=== PATIENT | male | born 1945 | race Caucasian/White ===

== ENCOUNTER 2023-05-27 10:27 | Outpatient (OUT) | payer MEDICARE, OTHER, SELFPAY ==
[2023-05-27 11:11] LABS: Estimated Average Glucose 111 mg/dL; Glycohemoglobin A1C 5.5 % (4.5-6.2)
[2023-05-27 11:28] LABS: Alanine Aminotransferase 31 U/L (16-63); Albumin Globulin Ratio 1.3; Alkaline Phosphatase 62 U/L (46-116); Anion Gap 12.1; Aspartate Amino Transferase 20 U/L (15-37); BUN Creatinine Ratio 18.2; Bilirubin Direct 0.2 mg/dL (0.0-0.2); Bilirubin Total 0.7 mg/dL (0.2-1.0); Calcium 8.7 mg/dL (8.5-10.1); Carbon Dioxide 29.8 mmol/L (21.0-32.0); Chloride 106 mmol/L (98-107); Chol HDL Ratio 2.1; Cholesterol 135 mg/dL (<=200); Estimated GFR (African America >60 (>=60); Estimated GFR (Non-African Ame >60 (>=60); Globulin 3.1 g/dL; Glucose 133 mg/dL (74-106); HDL Cholesterol 65 mg/dL (40-60); Potassium 3.9 mmol/L (3.5-5.1); Sodium 144 mmol/L (136-145); Thyroid Stimulating Hormone 1.714 uIU/mL (0.358-3.740); Total Protein 7.1 g/dL (6.4-8.2); Triglycerides 97 mg/dL (<=150); VLDL CHOLESTEROL 19.4 mg/dL
[2023-05-27 11:56] LABS: Basophils Percent Auto 0.8 % (0.2-2.0); Eosinophils Absolute Auto 0.1 10^3/uL (0.0-0.7); Eosinophils Percent Auto 3.5 % (0.9-7.0); Hematocrit 41.4 % (42.0-54.0); Hemoglobin 14.5 g/dL (14.0-18.0); Immature Granulocytes Abs Auto 0.02 10^3/uL (0.00-0.03); Immature Granulocytes Pct Auto 0.5 % (0.0-0.5); Lymphocytes Percent Auto 24.8 % (20.5-60.0); Mean Corpuscular Hemoglobin 32.2 pg (25.9-34.0); Mean Corpuscular Volume 91.8 fL (80.0-94.0); Mean Platelet Volume 9.7 fL (9.5-13.5); Monocytes Absolute Auto 0.3 10^3/uL (0.3-0.8); Monocytes Percent Auto 7.8 % (1.7-12.0); Neutrophils Absolute Auto 2.5 10^3/uL (1.4-6.5); Neutrophils Percent Auto 62.6 % (43.0-75.0); Platelet Count 123 10^3/uL (150-450); Red Blood Count 4.51 10^6/uL (4.70-6.10); Red Cell Distribution Width 12.5 % (11.0-15.0)
== END 2023-05-27 10:28 | disposition home or self-care (01) ==
PROVIDERS: PCP Family Medicine; Visit Provider Family Medicine
DX: I10 Essential (primary) hypertension (principal); Z79.899 Other long term (current) drug therapy; R73.03 Prediabetes; E78.5 Hyperlipidemia, unspecified; E66.9 Obesity, unspecified
CPT/HCPCS: 36415; 80048; 80061; 80076; 83036; 84443; 85025

== ENCOUNTER 2024-05-25 09:34 | Outpatient (OUT) | payer MEDICARE, OTHER, SELFPAY ==
[2024-05-25 10:21] LABS: Basophils Percent Auto 0.9 % (0.2-2.0); Eosinophils Absolute Auto 0.2 10^3/uL (0.0-0.7); Eosinophils Percent Auto 5.1 % (0.9-7.0); Hematocrit 41.7 % (42.0-54.0); Immature Granulocytes Abs Auto 0.02 10^3/uL (0.00-0.03); Immature Granulocytes Pct Auto 0.5 % (0.0-0.5); Lymphocytes Absolute Auto 0.9 10^3/uL (1.2-3.8); Lymphocytes Percent Auto 21.6 % (20.5-60.0); Mean Corpuscular HGB Conc 33.6 g/dL (29.9-35.2); Mean Corpuscular Hemoglobin 31.9 pg (25.9-34.0); Monocytes Absolute Auto 0.4 10^3/uL (0.3-0.8); Monocytes Percent Auto 9.4 % (1.7-12.0); Neutrophils Absolute Auto 2.7 10^3/uL (1.4-6.5); Neutrophils Percent Auto 62.5 % (43.0-75.0); Platelet Count 132 10^3/uL (150-450); Red Blood Count 4.39 10^6/uL (4.70-6.10); Red Cell Distribution Width 12.4 % (11.0-15.0); White Blood Count 4.4 10^3/uL (4.0-11.0)
[2024-05-25 11:16] LABS: Estimated Average Glucose 105 mg/dL; Glycohemoglobin A1C 5.3 % (4.5-6.2)
[2024-05-25 11:58] LABS: Alanine Aminotransferase 35 U/L (16-63); Albumin Globulin Ratio 1.2; Albumin Level 3.8 g/dL (3.4-5.0); Alkaline Phosphatase 80 U/L (46-116); Anion Gap 11.6; Aspartate Amino Transferase 32 U/L (15-37); BUN Creatinine Ratio 16.7; Bilirubin Direct 0.2 mg/dL (0.0-0.2); Bilirubin Total 0.7 mg/dL (0.2-1.0); Calcium 8.9 mg/dL (8.5-10.1); Carbon Dioxide 28.5 mmol/L (21.0-32.0); Chloride 106 mmol/L (98-107); Cholesterol 131 mg/dL (<=200); Estimated GFR (African America >60 (>=60); Estimated GFR (Non-African Ame >60 (>=60); Globulin 3.1 g/dL; Glucose 91 mg/dL (74-106); HDL Cholesterol 66 mg/dL (40-60); Potassium 4.1 mmol/L (3.5-5.1); Sodium 142 mmol/L (136-145); Thyroid Stimulating Hormone 1.872 uIU/mL (0.358-3.740); Total Protein 6.9 g/dL (6.4-8.2); Triglycerides 73 mg/dL (<=150); VLDL CHOLESTEROL 14.6 mg/dL
== END 2024-05-25 09:35 | disposition home or self-care (01) ==
LOC: LAB 09:36
PROVIDERS: PCP Family Medicine; Visit Provider Family Medicine
DX: R73.03 Prediabetes (principal); I10 Essential (primary) hypertension; Z79.899 Other long term (current) drug therapy; E78.5 Hyperlipidemia, unspecified; E66.9 Obesity, unspecified
CPT/HCPCS: 36415; 80048; 80061; 80076; 83036; 84443; 85025

== ENCOUNTER 2024-10-19 09:03 | Outpatient (OUT) | payer MEDICARE, OTHER, SELFPAY ==
--- NOTE | 2024-10-19 09:00 | CA_ITS ---
Patient Name: ILIANA FLORES MR#: [id number] : 1945 Exam Date: 10/19/2024 Ordering Doctor: DR MILLER GARCIA M.D. ECHOCARDIOGRAM REPORT PROCEDURE: CA ECHO DOPPLER COMPLETE INDICATIONS: Aortic valve stenosis, hypertension COMPARISON: None. DESCRIPTION: COMPLETE ECHOCARDIOGRAM Real-time transthoracic echocardiography with 2D, M-mode, spectral and color flow Doppler performed. QUALITY: Technical quality was good. LEFT VENTRICLE: Normal chamber size. Mild concentric left ventricular hypertrophy. LV EF: Normal left ventricular ejection fraction 65%, no regional wall motion abnormalities DIASTOLIC: Grade I diastolic dysfunction. ATRIAL SEPTUM: Visually appears intact. LEFT ATRIUM: Moderate dilatation. RIGHT ATRIUM: Moderate dilatation. RIGHT VENTRICLE: Normal chamber size. Normal right ventricular systolic function. TRICUSPID VALVE: Normal mobility and thickness. No stenosis with trivial regurgitation. Could not evaluate pulmonary arterial pressure due to lack of adequate tricuspid regurgitation signal MITRAL VALVE: Normal mobility and thickness. No evidence of mitral valve stenosis. There is no mitral annular calcification. No mitral regurgitation. AORTIC VALVE: Normal trileaflet appearance. Mildly calcified aortic valve. Mildly diminished mobility. Doppler velocity suggest mild aortic valve stenosis. DVI 0.4, ISSAC 1.7 cm2, mean pressure gradient 11.5 mmHg. Trivial aortic regurgitation. AORTIC ROOT: Normal diameter and appearance. Aortic arch is normal in size. PULMONIC VALVE: Normal thickness and mobility. No stenosis. No regurgitation. PERICARDIUM: No evidence of pericardial effusion. IVC: Normal size and Collapes with inspirations. PLEURA: CONCLUSION: Mild concentric left ventricular hypertrophy Normal left ventricle systolic function without wall motion abnormalities, ejection fraction 65% Grade 1 diastolic dysfunction Normal right ventricular size and systolic function Mild aortic stenosis Trivial aortic insufficiency Adult Echocardiography Procedure Report Left Ventricle LVEDD (3.7 - 5.6 cm): 4.91 cm LVESD (2.2 - 4.0 cm): 2.81 cm LVIVS thickness (0.6 - 1.2 cm): 1.19 cm LVPW thickness (0.5 - 1.0 cm): 1.13 cm e': 0.08 m/s E - e': 8.02 LVOT Max Gradient: 4.06 mm[Hg] LVOT Area (cm2): 1.01 m/s Peak Velocity (LVOT): 1.01 m/s Mean Velocity (LVOT): 0.77 m/s LVOT Diameter 2.23 cm Left Ventricular Ejection Fraction: Left Atrium LA Volume Index (2D A2C): 42.45 ml/m2 Left Atrium Systolic Dimension: 3.83 cm Mitral Valve MV E to A Ratio: 0.66 MV Max Gradient: MV Mean Gradient: Mitral Valve A-Wave Peak Velocity: 0.94 m/s Mitral Valve E-Wave Peak Velocity: 0.62 m/s Cardiovascular Orifice Area: Right Ventricle RV Internal Diastolic Dimension: Aorta AO Root Diam: 3.39 cm Ascending Ao Diam: Aortic Valve AoV Area (Peak Denys): 1.66 cm2, 2.74 cm2 AoV Area (VTI): 1.69 cm2, 3.01 cm2 Deceleration [place]: Pressure Half-Time: Peak Velocity(Antegrade Flow): 1.43 m/s, 2.10 m/s, 2.37 m/s Peak Gradient(Antegrade Flow): 8.19 mm[Hg], 17.59 mm[Hg], 22.45 mm[Hg] Mean Velocity(Antegrade Flow): 0.91 m/s, 1.37 m/s, 1.52 m/s Mean Gradient(Antegrade Flow): 4.05 mm[Hg], 9.26 mm[Hg], 11.45 mm[Hg] Velocity Time Integral: 29.25 cm, 44.83 cm, 52.21 cm Tricuspid Valve Peak Velocity (Regurgitant Flow): Peak Velocity: Pulmonic Valve Mean Gradient: 5.70 mm[Hg] Mean Velocity: 1.11 m/s Peak Velocity: 1.77 m/s, 1.73 m/s Peak Gradient: 11.95 mm[Hg], 12.55 mm[Hg] Right Atrium Right Atrium Systolic Pressure: 58.84 ml, 58.84 ml Dictated by: Thao Villa MD on 10/22/2024 at 18:33 Approved by: Thao Villa MD on 10/22/2024 at 18:42
== END 2024-10-19 09:04 | disposition home or self-care (01) ==
LOC: CARD 09:04
PROVIDERS: PCP Family Medicine; Visit Provider Internal Medicine Interventional Cardiology
DX: I35.9 Nonrheumatic aortic valve disorder, unspecified (principal); R68.89 Other general symptoms and signs
CPT/HCPCS: 93306

== ENCOUNTER 2025-10-04 09:44 | Outpatient (OUT) | payer MEDICARE, OTHER, SELFPAY ==
--- OUTSIDE RECORDS SUMMARY | 2025-09-26 10:45 | XMS_ITS | Encounter Summary ---
Author Organization [facility] Address [address] [place] [address] Care Team Providers Care Sheet Tester Name Role Phone Caleb Villeda MD Primary Care Provider [phone] Reason for Referral * Imaging (Routine) - Pending ReviewSpecialtyDiagnoses / ProceduresReferred By ContactReferred To ContactCardiology Diagnoses SANDOVAL (dyspnea on exertion) Coronary artery disease, unspecified vessel or lesion type, unspecified whether angina present, unspecified whether [place] or transplanted heart Procedures Transthoracic echo (TTE) complete Mulu Powers MD [address] [place] [address] Phone: tel: fax: Referral IDStatusReasonStart DateExpiration DateVisits RequestedVisits [id number] Review Perform Procedure Encounter Details DateTypeDepartmentCare Team (Latest Contact Info)Itaevpztlra30/11/2025 10:45 AM ESTOffice Visit [facility] [address] [address] Mulu Powers MD [address] [place] [address] SANDOVAL (dyspnea on exertion) (Primary Dx); Coronary artery disease, unspecified vessel or lesion type, unspecified whether angina present, unspecified whether [place] or transplanted heart Social History Tobacco UseTypesPacks/DayYears UsedDateSmoking Tobacco: FormerCigarettesAlcohol UseStandard Drinks/WeekCommentsYes0 (1 standard drink = 0.6 oz pure alcohol) moderateUT Safety & EnvironmentAnswerDate RecordedFear of Current or Ex-Partner Not on file12/08/2023Emotionally AbusedNot on file12/08/2023hysically AbusedNot on file12/08/2023Sexually AbusedNot on file12/08/2023hysically or Sexually AbusedNot on file12/08/2023Sex and Gender InformationValueDate RecordedSex Assigned at TzdvaKeig39/11/2025 10:45 AM ESTLegal GvsFuul3804/15/2022 12:39 AM EDT Gender IdentityChoose not to neikfiwh22/11/2025 10:45 AM ESTSexual Orientation Choose not to cwlkkbwi59/11/2025 10:45 AM ESTdocumented as of this encounter Last Filed Vital Signs Vital SignReadingTime TakenCommentsBlood Mhtxfjpq010/7009/26/2025 11:00 AM EST Usbls733209/26/2025 11:00 AM ESTTemperature--Respiratory Rate--Oxygen Saturation 98%09/26/2025 11:00 AM ESTInhaled Oxygen Concentration--Jeivlt085 kg (224 lb) 09/26/2025 11:00 AM NPHJqewgu624.3 cm (5' 9 )09/26/2025 11:00 AM ESTBody Mass Index33.0809/26/2025 11:00 AM ESTdocumented in this encounter Progress Notes * Mulu Powers MD - 09/26/2025 10:45 AM EST Images from the original note were not included. Cardiology Clinic Note Subjective Prateek Llanes is a 79 y.o. year old male patient being seen for 1 year follow up CAD, hypertension, hyperlipidemia, and aortic valve stenosis. Had his echo in Oct 2024 after last apt. No recent lab results. Denies chest pain. C/o worsening SOB with ambulation. Patient Active Problem List Diagnosis Benign prostatic hyperplasia with lower urinary tract symptoms Cardiovascular stress test abnormal Erectile dysfunction due to diseases classified elsewhere Urge incontinence Urologic disorders Essential hypertension Ex-smoker Gout Hyperlipidemia Microscopic hematuria Obesity Positive PPD Arthritis, gouty CAD, multiple vessel Chronic left-sided low back pain without sciatica Dermatitis Dyslipidemia Encounter for long-term current use of medication Medicare annual wellness visit, subsequent Prediabetes Neck pain Family History Problem Relation Name Age of Onset Heart attack Father Heart failure Father Heart murmur Sister Social History Tobacco Use Smoking status: Former Types: Cigarettes Substance Use Topics Alcohol use: Yes Comment: moderate Update: 08/30/2022 Doing okay overall; no chest pain. Shortness of breath is stable. He has numbness of the left hand particularly when he sleeps with his arm above his head. He stateshe noticed this initially after his cardiac catheterization which was via a radial approach. This is improved with time. He denies weakness, he denies color changes, he denies discoloration or skin lesions of the left upper extremity. He is left-handed. Update: 07/25/2023 No longer experiencing numbness in his left arm Does not monitor blood pressure at home Doing well without concerns from a cardiac standpoint Reports stable dyspnea on exertion, no chest pains, significant lower extremity edema, or palpitations Update 10/03/2024: Doing well; no new cardiovascular symptoms UPDATE 09/26/2025 He feels that he is more short of breath with exertion; this has been going on for the past year. No chest pain No orthopnea, no paroxysmal external dyspnea, no significant lower extremity edema Review of Systems Cardiovascular: Positive for dyspnea on exertion (worsening) and leg swelling (minimal, resolves bymorning). Respiratory: Positive for cough. All other systems reviewed and are negative. Objective Visit Vitals Smoking Status Former Physical Exam BP 128/70 (BP Location: Left arm, Patient Position: Sitting) Pulse 65 Ht 1.753 m (5' 9 ) Wt 102 kg (224 lb) SpO2 98% BMI 33.08 kg/m?? Constitutional: General Appearance: well-developed, appears stated age, and no apparent distress. Psychiatric: Mental Status: normal affect. Orientation: oriented to time, place, and person. Eyes: Lids and Conjunctivae: non-injected. ENMT: Nose: no lesions on external nose. Neck: Carotid Arteries: bilateral normal upstroke. Jugular Veins: normal jugular venous pressure. Lungs: Chest Exam: normal curvature. Auscultation: no wheezing, rales, or rhonchi. Cardiovascular: Heart Sounds: normal S1 and s2. Regular rate and rhythm. Systolic Murmur: not heard. Diastolic Murmur: not heard. Extremities: No edema, no tenderness. Peripheral Pulses: Pulses: full and equal in all extremities except if noted. Abdomen: Inspection and Palpation: non distended. Neurologic: Gait: normal gait. Skin: Inspection and Palpation: warm and dry. Nails: no clubbing. Allergies No Known Allergies Medications Current Outpatient Medications: allopurinol (Zyloprim) 100 mg tablet, allopurinol 100 mg tablet TAKE 1 TABLET BY MOUTH EVERY DAY, Disp: , Rfl: amLODIPine (Norvasc) 5 mg tablet, Take 1 tablet (5 mg) by mouth in the morning., Disp: 90 tablet, Rfl: 3 aspirin 81 mg EC tablet, 1 (one) time each day at the same time., Disp: , Rfl: atorvastatin (Lipitor) 40 mg tablet, Take 1 tablet (40 mg) by mouth at bedtime., Disp: 90 tablet, Rfl: 3 carvedilol (Coreg) 6.25 mg tablet, Take 1 tablet (6.25 mg) by mouth with breakfast and with eveningmeal., Disp: 180 tablet, Rfl: 3 losartan (Cozaar) 25 mg tablet, Take 1 tablet (25 mg) by mouth in the morning., Disp: 90 tablet, Rfl: 3 tamsulosin (Flomax) 0.4 mg 24 hr capsule, Take 1 tablet by mouth in the morning., Disp: , Rfl: Recent Labs 05/27/2023 WBC 4, hemoglobin 14.5, hematocrit 41.4, platelets 123 Sodium 144, potassium 3.9, chloride 108, CO2 29.8, BUN 16, serum creatinine 0.88, estimated GFR greater than 60% Hemoglobin A1c 5.5% Total cholesterol 135, triglycerides 97, HDL 65, LDL 51 TSH 1.714 (0.358-3.740) Imaging and other tests Cardiovascular Laboratory Report FINAL IMPRESSIONS: 1. Severe stenosis of the high originating first obtuse marginal branch of the left circumflex. 2. Moderate calcific disease of the left anterior descending coronary artery. 3. Mild plaque of the right coronary artery. RECOMMENDATIONS: 1. Given the proximity of the stenosis to the distal left main/ostial left circumflex and ostial left anterior descending, and the paucity of symptoms, recommended a conservative approach with continued optimal medical therapy. 2. Aggressive cardiovascular risk factor modification. 3. Optimization of medical management; continue aspirin, switch simvastatin to 40 mg of atorvastatin, increase his Coreg and add Norvasc 5 mg daily. Ideally, nitrates would have been added, however, the patient is on Sildenafil. 4. Close clinical monitoring for development of new or worsening symptomatology. 5. Should the patient continue to experience symptoms despite optimal medical therapy, he will return for elective revascularization of the obtuse marginal from a femoral approach given difficulties encountered via the left radial. 6. Follow up with Dr. Powers in the next 2-3 weeks. 7. Follow up with Dr. Villeda as scheduled. PROCEDURES: Bilateral selective coronary angiography via a left radial approach. Echo 07/01/21 Normal LVSF EF 55-60% No wall motion abnormalities Mild elevated rt sided pressures Mild AO stenosis Cardiac CTA from 06/26/2021 Impression showed mild calcified plaques in the proximal RCA with less than 50% stenosis of moderate calcified and noncalcified plaques in the proximal LAD with moderate stenosis of 50 to 70%. Small caliber of the left circumflex and OM branches. Normal global regional wall motion and function of the LV. Normal ejection fraction 69%. Mild thoracic spondylosis. Mild vascular calcification in the descending thoracic aorta. Calcium scoring of 802 suggesting moderate likelihood of significant coronary artery disease and single-vessel which is more likely involving the LAD Stress test from 05/14/2021 Normal myocardial perfusion - At onset of recovery there appears to be a [address] segment depression in lead I as well as downsloping with inverted T wave in lead aVL. There is also J-point depression in the inferior lateral leadsat work-up with upsloping. Therefore the impression was this is an abnormal exercise stress test based on ST segment downsloping and depression in the anterior leads. The patient voiced no reproducible symptoms of chest pain or shortness of breath. Left upper extremity Doppler 03/03/2022 Abnormal reversal of flow throughout the left upper extremity during diastole No significant vessel narrowing or plaque Labs 05/25/2024: BUN 14, creatinine 0.84 AST and ALT are normal Total cholesterol 131, triglycerides 73, HDL 66, LDL 51 Echocardiogram 10/23/2024: Global left ventricular systolic function is normal without wall motion abnormality; EF 65% Mild left ventricular hypertrophy Grade 1 diastolic dysfunction Normal right ventricular size and systolic function Mild aortic valve stenosis Trivial aortic insufficiency Assessment Plan 1. Coronary artery disease -Severe stenosis of the high originating first obtuse marginal branch of the left circumflex with recommendations for medical management. Stable without anginal symptoms. He is maintained on aspirin 81 mg, atorvastatin 40 mg, losartan 25 mg, and carvedilol 6.25 mg twice daily. 2. Hypertension -Well-controlled, continue current medication regimen. Obtain labs today. 3. Aortic valve stenosis -Mild stenosis on echocardiogram, will plan for echo in about 2 years for surveillance or sooner asclinically indicated. 4. Hyperlipidemia -Well-controlled on atorvastatin 40 mg with LDL of 51. 5. Left arm numbness -Prior concern for left subclavian stenosis versus thoracic outlet syndrome. Symptoms have completely resolved. No further work-up is indicated. Recommendations: Continue guideline directed medical therapy for coronary artery disease including aspirin, moderateintensity statin therapy, and an angiotensin receptor ne Will repeat an echocardiogram for serial monitoring of his valvular heart disease, Particularly given his dyspnea on exertion We will order a Lexiscan stress test to evaluate for ischemia given his known coronary artery disease and current worsening exertional dyspnea Will consider cardiac catheterization including a right heart catheterization and coronary angiography if significant ischemia is found Return to clinic in 6 months or sooner should problems arise Mulu Powers MD, MPH, [facility], [facility], [facility] Interventional Cardiology Pager Email: [email or web address] documented in this encounter Plan of Treatment NameTypePriorityAssociated DiagnosesOrder ScheduleTransthoracic echo (TTE) completeEchocardiographyRoutine SANDOVAL (dyspnea on exertion) Coronary artery disease, unspecified vessel or lesion type, unspecified whether angina present, unspecified whether [place] or transplanted heart Expected: 09/26/2025 (Approximate), Expires: 09/26/2027Lexiscan Stress Myocardial Perfusion ImagingCardiac ServicesRoutine SANDOVAL (dyspnea on exertion) Coronary artery disease, unspecified vessel or lesion type, unspecified whether angina present, unspecified whether [place] or transplanted heart Expected: 09/26/2025 (Approximate), Expires: 09/26/2027documented as of this encounter Visit Diagnoses Diagnosis SANDOVAL (dyspnea on exertion)- Primary Other dyspnea and respiratory abnormality Coronary artery disease, unspecified vessel or lesion type, unspecified whether angina present, unspecified whether [place] or transplanted heart documented in this encounter Care Teams Team MemberRelationshipSpecialtyStart DateEnd Date Caleb Villeda MD [address] [place] [address] PCP - Rpwhrxr11/10/22documented as of this encounter
--- OUTSIDE RECORDS SUMMARY | 2025-10-04 09:48 | XMS_ITS | Clinical Summary ---
Author Organization [facility] Address [address] [place] [address] Care Team Providers Care Home Demonstrator Name Role Phone Caleb Villeda MD Primary Care Provider [phone] Allergies No known active allergies Medications MedicationSigDispense QuantityRefillsLast FilledStart DateEnd DateStatus allopurinol (Zyloprim) 100 mg tablet allopurinol 100 mg tablet TAKE 1 TABLET BY MOUTH EVERY DAYActive aspirin 81 mg EC tablet 1 (one) time each day at the same time.Active tamsulosin (Flomax) 0.4 mg 24 hr capsule Take 1 tablet by mouth in the morning.Active carvedilol (Coreg) 6.25 mg tablet Indications:Benign hypertensive heart disease without congestive heart failure Take 1 tablet (6.25 mg) by mouth with breakfast and with evening meal. 180 tablet 4Active losartan (Cozaar) 25 mg tablet Indications:Benign hypertensive heart disease without congestive heart failure Take 1 tablet (25 mg) by mouth in the morning. 90 tablet 501/6Active amLODIPine (Norvasc) 5 mg tablet Indications:Benign hypertensive heart disease without congestive heart failure Take 1 tablet (5 mg) by mouth in the morning. 90 tablet //6Active atorvastatin (Lipitor) 40 mg tablet Indications:Coronary artery disease, unspecified vessel or lesion type, unspecified whether angina present, unspecified whether sam[place] or transplanted heartTake 1 tablet (40 mg) by mouth at bedtime. 90 tablet 311/5Active cyclobenzap-irritant cntr irr2 10 mg kit Take 10 mg by mouth if needed in the morning, at noon, and at bedtime.06/03/2025 Active atorvastatin (Lipitor) 40 mg tablet Indications:Coronary artery disease, unspecified vessel or lesion type, unspecified whether angina present, unspecified whether sam[place] or transplanted heartTAKE 1 TABLET BY MOUTH AT BEDTIME 90 tablet Discontinued(Reorder) Active Problems ProblemNoted DateDiagnosed DateNeck pain06/03/2025Medicare annual wellness visit, tvlxknkytc91/05/7717Zfxtgpbvwe31/14/2024rthritis, gouty11/30/2023AD, multiple acbnja5111/30/2023hronic left-sided low back pain without sciatica 11/30/20235188Sgnltymtvqch67/14/2024Encounter for long-term current use of umbuuogtqr04/14/7866Iulswnvxwwl04/14/2024Essential mictbostdafc46/09/2023 07/25/2023Ex-musprn58outHyperlipidemia Microscopic efudmumyr94Obesity07/25/2023 07/25/2023ositive PPDErectile dysfunction due to diseases classified wormtewhw36/09/2022enign prostatic hyperplasia with lower urinary tract czaklhwz32/17/2022Urge eynbvvgeonzs92/17/2022Urologic mtolvcqxc62/17/2022 Overview (08/30/2022): 1. benign prostatic hyperplasia with obstruction cystoscopy 04/23/2022 with progressively worseningurinary ludvupmac-96-11 times, nocturia times 2-3, and decreased urinary stream with rare urge incontinence complicated by 2 beers and 1 cup of coffee daily and progression despite Flomax 0.4 mg nightly with primary care; [place] 2. ED with documented coronary disease responding to Viagra 100 mg with primary care 3. Concern for microscopic hematuria urine dip 03/02/2022 ruled out by microscopic urinalysis 4. Bilateral simple renal cysts ultrasound 03/22/2022 5. Complex urodynamics 03/19/2022 peak and mean flows 43.9 and 10.6 PVR 50 mL, decreased bladder capacity 143 mL with uninhibited contractions, very elevated voiding pressures, and peak and mean flows on voiding pressure study 9.9 and 3.3 with PVR 0 6. Patient requested prostate cancer screening 06/25/2022. Cardiovascular stress test /18/2021 Encounters DateTypeDepartmentCare KwemFsmjvcfinbn26/11/2025 10:45 AM ESTOffice Visit [facility] [address] [place] [facility] [place] [address] Mulu Powers MD DOE (dyspnea on exertion) (Primary Dx); Coronary artery disease, unspecified vessel or lesion type, unspecified whether angina present, unspecified whether sam[place] or transplanted heart09/05/2025Refill [facility] [address] [place] [facility] [place] [address] Chely Aldana MA Coronary artery disease, unspecified vessel or lesion type, unspecified whether angina present, unspecified whether sam[place] or transplanted heart08/12/2025Orders Only [facility] [address] [place] [facility] [place] [address] Chely Aldana MA 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 Last 3 Months Family History Medical HistoryRelationNameCommentsHeart attackFatherHeart failureFatherHeart murmurSisterRelationNameStatusCommentsFatherSister Social History Tobacco UseTypesPacks/DayYears UsedDateSmoking Tobacco: FormerCigarettes Tobacco Cessation:Counseling Given: Not Answered Alcohol UseStandard Drinks/WeekCommentsYes0 (1 standard drink = 0.6 oz pure alcohol)moderateUT Safety & EnvironmentAnswerDate RecordedFear of Current or Ex-PartnerNot on file12/08/2023Emotionally AbusedNot on file12/08/2023hysically AbusedNot on file12/08/2023Sexually AbusedNot on file12/08/2023hysically or Sexually AbusedNot on file12/08/2023Sex and Gender InformationValueDate Recorded Sex Assigned at PohndKvfz22/11/2025 10:45 AM ESTLegal IvkPbvf6604/15/2022 12:39 AM EDTGender IdentityChoose not to mjetokin47/11/2025 10:45 AM ESTSexual OrientationChoose not to fdrbwlus77/11/2025 10:45 AM EST Last Filed Vital Signs Vital SignReadingTime TakenCommentsBlood Eumuzmgj193/7009/26/2025 11:00 AM EST Gmaqq832009/26/2025 11:00 AM ESTTemperature--Respiratory Rate--Oxygen Saturation 98%09/26/2025 11:00 AM ESTInhaled Oxygen Concentration--Zxmibv579 kg (224 lb) 09/26/2025 11:00 AM BBXCqfqvf557.3 cm (5' 9 )09/26/2025 11:00 AM ESTBody Mass Index33.0809/26/2025 11:00 AM EST Plan of Treatment Health MaintenanceDue DateLast DoneCommentsDiabetes: Hemoglobin A1C1945 Medicare Annual Wellness (AWV)1945Depression Acywgawds27/05/1959Fall Risk Mudicczyk53/05/2012COVID-19 Vaccine ( season)5006/25/2025, 01/25/2025, 06/25/2024, Additional history existsAdult Qipkxjo0502/22/2029 02/22/2019, 03/07/2012Pneumococcal Vaccine: 50+ PvqtjLnpyixljw59/19/2018, 10/24/2015Zoster RexzmdyyBidsgoguh38/09/2019, 02/22/2019, 05/21/2013Influenza ZdsrsmzAtjlglnbp96/09/2025, 06/25/2024, 06/01/2023, Additional history existsHIB VaccinesAged OutNo longer eligible based on patient's age to complete this topic HPV VaccinesAged OutNo longer eligible based on patient's age to complete this topicIPV VaccinesAged OutNo longer eligible based on patient's age to complete this topicMeningococcal B VaccineAged OutNo longer eligible based on patient's age to complete this topicMeningococcal VaccineAged OutNo longer eligible based on patient's age to complete this topicRotavirus VaccinesAged OutNo longer eligible based on patient's age to complete this topic Insurance * Guarantor: Prateek Llanes TypeRelation to PatientDate of BirthPhone Billing AddressPersonal/PlfpcjDecr02/05/1946 [address] [address] MemberSubscriberPlan / Payer (Effective 2011-Present)Name:Prateek Llanes Member ID:[id number] Relation to Subscriber:SelfName:Prateek Llanes Subscriber ID:[id number] Payer ID:[id number] Group ID:Not on file Type:Medicare Address: [facility] [place] [id number] Care Teams Team MemberRelationshipSpecialtyStart DateEnd Date Caleb Villeda MD [address] [place] [address] PCP - Lqxqsae35/10/22
--- OUTSIDE RECORDS SUMMARY | 2025-10-04 09:48 | XMS_ITS | Clinical Summary ---
Author Organization [employer] tem Address [id number] [address] [place] [address] Care Team Providers Care Electronic Pagination System Operator Name Role Phone Caleb Villeda MD Primary Care Provider [phone] Allergies No known active allergies Medications MedicationSigDispense QuantityRefillsLast FilledStart DateEnd DateStatus allopurinoL (ZYLOPRIM) 100 mg tablet Active amLODIPine (NORVASC) 5 mg tablet Active aspirin 81 mg daily.Active atorvastatin (LIPITOR) 40 mg tablet Active carvediloL (COREG) 6.25 mg tablet Active losartan (COZAAR) 25 mg tablet Active sildenafiL, pulm.hypertension, (REVATIO) 20 mg tablet Active tamsulosin (FLOMAX) 0.4 mg capsule Take 2 capsules (0.8 mg total) by mouth nightly for 360 days. 180 capsule 509/6Active tadalafiL (CIALIS) 5 mg tablet Indications:Erectile dysfunction due to diseases classified elsewhere,Benign prostatic hyperplasia with nocturia,Urge incontinenceTake 1 tablet (5 mg total) by mouth in the morning. 90 tablet 5Active Active Problems ProblemNoted DateDiagnosed DateErectile dysfunction due to diseases classified wcxxryxwk56/09/2022Urge tnsejxuhcako93/17/2022Urologic kgymgnlir93/17/2022 Overview (06/25/2022): 1. benign prostatic hyperplasia with obstruction cystoscopy 04/23/2022 with progressively worseningurinary eamdsnclt-91-56 times, nocturia times 2-3, and decreased urinary [...] 6. Patient requested prostate cancer screening 06/25/2022. Benign prostatic hyperplasia with lower urinary tract /17/2022 Encounters DateTypeDepartmentCare NoslBopuykgpzsi60/26/2025 10:45 AM EDTOffice Visit [facility] [address] [place] [address] [place] [address] Tulio Cast Jr., MD Erectile dysfunction due to diseases classified elsewhere (Primary Dx); Benign prostatic hyperplasia with nocturia; Urge incontinence; Urologic rxkqjrohp98/24/2025Travelfrom Last 3 Months Family History Medical HistoryRelationNameCommentsCoronary artery diseaseFatherFrederick ReineckDepressionFatherFrederick ReineckEarly deathFatherFrederick ReineckHeart diseaseFatherFrederick ReineckCOPDMotherMardavid Hernandez ReineckColon cancerMother Dilcia Hernandez ReineckRelationNameStatusCommentsFatherFrederick ReineckDeceased MotherMardavid Hernandez ReineckDeceased Social History Tobacco UseTypesPacks/DayYears UsedDateSmoking Tobacco: FormerCigarettes Smokeless Tobacco: Never Tobacco Cessation:Counseling Given: Not Answered Alcohol UseStandard Drinks/WeekCommentsYes2 (1 standard drink = 0.6 oz pure alcohol)ChildcareAnswerDate UsweappkIzpfpuquqEliazhw64/12/2019EmploymentAnswer Date AcsyewcmGzwkcizxanXzdjhum37/12/2019Hunger ScreeningAnswerDate Recorded Within the past 12 months we worried whether our food would run out before we got money to buy more.Never True07/12/2025Within the past 12 months the food we bought just didn't last and we didn't have money to get more.Never True 07/12/2025Purpose - LifeAnswerDate RecordedPurpose and direction in lifeUnknown 11/27/2020ex and Gender InformationValueDate RecordedSex Assigned at BirthNot on fileLegal TdnGeup0105/22/2015 11:52 AM EDTGender IdentityNot on fileSexual OrientationNot on file Last Filed Vital Signs Vital SignReadingTime TakenCommentsBlood Aujpwrur740/7009 11:02 AM EDT Dudpx931107/12/2025 11:02 AM EDTTemperature--Respiratory Kaej836606/25/2022 10:32 AM EDTOxygen Saturation--Inhaled Oxygen Concentration--Hrfyah01.8 kg (220 lb) 07/12/2025 11:02 AM KTWZpnmue650.3 cm (5' 9 )07/12/2025 11:02 AM EDTBody Mass Index32.49007/12/2025 11:02 AM EDT Plan of Treatment DateTypeDepartmentCare Team (Latest Contact Info)Ubleoqowsjy73/25/2026 10:15 AM EDTOffice Visit [facility] [address] [place] [address] [facility] [place] [address] Tulio Cast Jr., MD [facility][note 3][address] [place] [address] Health MaintenanceDue DateLast DoneCommentsDepression Qkfnwzwap00/05/1959Fall Risk Bwbkfcwwf12/05/2012RSV ( or age 60+ yrs) (1 - 1-dose 75+ series) 2COVID-19 Vaccine (2024- season)/06/2025, 01/25/2025, 06/25/2024, Additional history existsTobacco Mejicuutp15/26/2026 07/12/2025DTaP,Tdap and Td Vaccines (3 - Td or Tdap), 03/07/2012Zoster (Shingles) OkxkavnNrsnkpqot54/09/2019, 02/22/2019, 05/21/2013 Abdominal Aortic Aneurysm (AAA) SifdndRurcrlstu78/03/2022Influenza Vaccine Aowdywsne55/09/2025, 06/25/2024, 06/01/2023, Additional history exists Medical Devices Not on file Procedures Procedure NamePriorityDate/TimeAssociated DiagnosisCommentsUS RETROPERITONEAL PIDKERPCBjxktld56/03/2022 3:09 PM EDT Urge incontinence Benign prostatic hyperplasia with lower urinary tract symptoms, symptom details unspecified Asymptomatic microscopic hematuria from Last 3 Months or Most Recently Relevant to Health Maintenance Results * Ultrasound retroperitoneal complete (03/19/2022 3:09 PM EDT)Anatomical Region LateralityModalityPelvis, BodyUltrasoundSpecimen (Source)Anatomical Location / LateralityCollection Method / VolumeCollection TimeReceived Time03/22/2022 6:56 AM EDT Narrative 03/22/2022 6:57 AM EDT CLINICAL INFORMATION: Urge incontinence; Benign prostatic hyperplasia with lower urinary tract symptoms, symptom details unspecified; Asymptomatic microscopic hematuria. COMPARISON: None. PROCEDURE: Routine Renal Ultrasound was obtained. FINDINGS: The right kidney measures 11.9 cm. The left kidney measures 12.7 cm. Bilateral renal cysts the largest on the right 2.8 cm and on the left 2.4 cm. The bladder is unremarkable. Ureteral jets are visualized. IMPRESSION: 1. No acute findings. Finalized by Gilmer Hi MD on 03/22/2022 6:57 AM Procedure Note Gilmer Hi MD - 03/22/2022 CLINICAL INFORMATION: Urge incontinence; Benign prostatic hyperplasia withlower urinary tract symptoms, symptom details unspecified; Asymptomaticmicroscopic hematuria. COMPARISON: None. PROCEDURE: Routine Renal Ultrasound was obtained. FINDINGS: The right kidney measures 11.9 cm. The left kidney measures 12.7 cm. Bilateral renal cysts the largest on the right 2.8 cm and on the left 2.4cm. The bladder is unremarkable. Ureteral jets are visualized. IMPRESSION: 1. No acute findings. Finalized by Gilmer Hi MD on 03/22/2022 6:57 AM Authorizing ProviderResult TypeResult StatusGregor Suzi Cast Jr., MDG ORDERABLESFinal Result from Last 3 Months or Most Recently Relevant to Health Maintenance Insurance Care Teams Team MemberRelationshipSpecialtyStart DateEnd Date Caleb Villeda MD [address] [place] [address] PCP - GeneralFatxly Medicine06/28/25
--- OUTSIDE RECORDS SUMMARY | 2025-10-04 09:48 | XMS_ITS | Clinical Summary ---
Author Organization [facility] Healthcare Address [address] [place] [address] Care Team Providers Care Shell Worker Name Role Phone Caleb Villeda MD Primary Care Provider [phone] Caleb Villeda MD Unavailable Allergies No known active allergies Medications MedicationSigDispense QuantityRefillsLast FilledStart DateEnd DateStatus amLODIPine (Norvasc) 5 MG tablet Take 1 tablet by mouth in the morning.07/25/2023ctive atorvastatin (Lipitor) 40 MG tablet Take 1 tablet by mouth at slzlprr3707/25/2023ctive carvedilol (Coreg) 6.25 MG tablet Take 1 tablet by mouth in the morning and 1 tablet in the evening. Take with meals.07/25/2023ctive losartan (Cozaar) 25 MG tablet Take 1 tablet by mouth in the morning.07/25/2023ctive tamsulosin (Flomax) 0.4 MG 24 hr capsule Take 0.8 mg by mouth DailyActive triamcinolone (Kenalog) 0.5 % cream Indications:DermatitisApply topically 3 (three) times a day 60 g 4Active sildenafil (Revatio) 20 MG tablet Indications:BPH without urinary obstructionTake 1 tablet (20 mg) by mouth Daily Pulm hypertension 90 tablet 304/969096/6Active allopurinol (Zyloprim) 100 MG tablet Indications:Gout, unspecified,Gouty arthropathyTAKE 1 TABLET BY MOUTH EVERY DAY 90 tablet 3065Active cyclobenzaprine (Flexeril) 10 MG tablet Indications:Neck painTake 1 tablet (10 mg) by mouth 3 (three) times a day as needed for muscle spasms 30 tablet 5Active Active Problems ProblemNoted DateDiagnosed DateNeck pain08/ Assessment & Plan (06/03/2025 1:40 PM EDT): Recent pain and possibly related to underlying DDD. Treat with prednisone. Use flexeril PRN. Use heat and massage PRN. If no improvement will need x-ray and PT. Medicare annual wellness visit, kdaobacqyk24/05/2024 Assessment & Plan (09/20/2024 11:41 AM EST): Reviewed labs. Discussed proper diet and regular aerobic exercise. Need aerobic exercise 5-6 days aweek for 30 minutes at a time. Smaller portions and limit total calories. Tetanus every 10 years. Advised not to smoke. Sclothrjjq53/14/2024 Assessment & Plan (05/30/2024 9:11 AM EDT): Rash appears to be contact dermatitis. Use steroid cream. Essential hypertension, vrrjyb0611/30/2023 Assessment & Plan (04/16/2025 9:54 AM EDT): BP controlled and monitor PRN. Assessment & Plan (05/30/2024 9:11 AM EDT): BP controlled and monitor PRN. Assessment & Plan (11/30/2023 9:17 AM EST): BP controlled and monitor PRN. BPH without urinary ubxmjbhhuia70/14/2024 Assessment & Plan (04/16/2025 9:54 AM EDT): Symptoms stable and continue flomax. Follow up with urology. Assessment & Plan (05/30/2024 9:10 AM EDT): Symptoms stable and continue flomax. Follow up with urology. Assessment & Plan (11/30/2023 9:16 AM EST): Symptoms stable and continue flomax. Follow up with urology. CAD, multiple ipydga8211/30/20237156Jrzwzfkuajzc16/14/2024Erectile dysfunction of nonorganic wgfubj0711/30/2023rthritis, gouty11/30/2023 Assessment & Plan (04/16/2025 9:54 AM EDT): No flares and continue allopurinol. Assessment & Plan (05/30/2024 9:10 AM EDT): No flares and continue allopurinol. Assessment & Plan (11/30/2023 9:16 AM EST): No flares and continue allopurinol. Znsrzyybmle54/14/2024Urge hggfumdcbaiu86/14/2024Encounter for long-term current use of vbgccqjoxn39/14/2024Obesity (BMI 30-39.9)11/30/2023hronic left-sided low back pain without rdqffelq61/14/2024 Assessment & Plan (11/30/2023 9:17 AM EST): Occasional pain and use ultram PRN. Use heat and massage PRN. If worsens will need x-ray and PT. Family History Medical HistoryRelationNameCommentsHeart diseaseFatherCancerMotherColon cancer RelationNameStatusCommentsFatherDeceasedMotherDeceased Social History Tobacco UseTypesPacks/DayYears UsedDateSmoking Tobacco: NeverSmokeless Tobacco: Never Tobacco Cessation:Counseling Given: Not Answered B1300 Health LiteracyAnswerDate RecordedHow often do you need to have someone help you when you read instructions, pamphlets, or other written material from your doctor or pharmacy?Fivmek8804/11/2025Humiliation, Afraid, Rape, and Kick questionnaireAnswerDate RecordedWithin the last year, have you been afraid of your partner or ex-partner?No04/11/2025Within the last year, have you been humiliated or emotionally abused in other ways by your partner or ex-partner?No 04/11/2025Within the last year, have you been kicked, hit, slapped, or otherwise physically hurt by your partner or ex-partner?No04/11/2025Within the last year, have you been raped or forced to have any kind of sexual activity by your part ner or ex-partner?No04/11/2025Social Connection and Isolation PanelAnswerDate RecordedIn a typical week, how many times do you talk on the phone with family, friends, or neighbors?More than three times a week04/11/2025How often do you get together with friends or relatives?More than three times a week04/11/2025How often do you attend christian or scientologist services?More than 4 times per year 04/11/2025Do you belong to any clubs or organizations such as christian groups, unions, fraMVP Vault or athletic groups, or school groups?Yes04/11/2025How often do you attend meetings of the clubs or organizations you belong to?More than 4 times per year04/11/2025re you , , , , never , or living with a partner?Xhlazvu1704/11/2025UDIT-CAnswerDate RecordedQ1: How often do you have a drink containing alcohol?4 or more times a week 04/11/2025Q2: How many drinks containing alcohol do you have on a typical day when you are drinking?1 or Q3: How often do you have six or more drinks on one occasion?Never04/11/2025Overall Financial Resource Strain (CARDIA) AnswerDate RecordedHow hard is it for you to pay for the very basics like food, housing, medical care, and heating?Not hard at all04/11/2025PHQ-2AnswerDate RecordedPatient Health Questionnaire-2 Qghps93511/21/2023[facility] [place] of Occupational Health - Occupational Stress QuestionnaireAnswerDate RecordedDo you feel stress - tense, restless, nervous, or anxious, or unable to sleep at night because yourmind is troubled all the time - these days?To some qqjskx1504/11/2025 Exercise Vital SignAnswerDate RecordedOn average, how many days per week do you engage in moderate to strenuous exercise (like a brisk walk)?2 days04/11/2025On average, how many minutes do you engage in exercise at this level?10 min 04/11/2025Hunger Vital SignAnswerDate RecordedWithin the past 12 months, you worried that your food would run out before you got the money to buymore.Never true04/11/2025Within the past 12 months, the food you bought just didn't last and you didn't have money to get more.Never true04/11/2025PRAPARE - TransportationAnswerDate RecordedIn the past 12 months, has lack of transportation kept you from medical appointments or from getting medications?No 04/11/2025In the past 12 months, has lack of transportation kept you from meetings, work, or from getting things needed for daily living?No04/11/2025 Housing Stability Vital SignAnswerDate RecordedIn the last 12 months, was there a time when you were not able to pay the mortgage or rent on time?No11/23/2023In the last 12 months, how many places have you lived?In the last 12 months, was there a time when you did not have a steady place to sleep or slept in [place] (including now)?No11/23/2023Housing Stability Vital SignAnswerDate RecordedIn the last 12 months, was there a time when you were not able to pay the mortgage or rent on time?No04/11/2025Number of Times Moved in the Last Year Not on file04/11/2025t any time in the past 12 months, were you homeless or living in a chcf (including now)?No04/11/2025Sex and Gender InformationValue Date RecordedSex Assigned at BirthNot on fileLegal UizLfcd9406/01/2023 11:21 AM EDTGender IdentityNot on fileSexual OrientationNot on file Last Filed Vital Signs Vital SignReadingTime TakenCommentsBlood Cmcaybqx278/6008 1:11 PM EDT Udmop9344 1:11 PM LIBNbptfmpynqq61.4 ??C (97.5 ??F)06/03/2025 1:11 PM EDTRespiratory Qhkh185606/03/2025 1:11 PM EDTOxygen Siimarnson11%06/03/2025 1:11 PM EDTInhaled Oxygen Concentration--Ihqjve226 kg (224 lb)06/03/2025 1:11 PM EDT Sehzpk490.3 cm (5' 9 )06/03/2025 1:11 PM EDTBody Mass Index33.0806/03/2025 1:11 PM EDT Plan of Treatment Health MaintenanceDue DateLast DoneCommentsMedicare Annual Wellness (AWV) 1945COVID-19 Vaccine ( season)504/08/2025, 06/25/2024, 12/26/2023, Additional history existsInfluenza Vaccine (#1) 509/06/2024, 06/01/2023, 07/10/2022, Additional history exists Pneumococcal Vaccine: 65+ DtvxuLdqhgxvbg50/19/2018, 07/17/2016, 10/24/2015 Insurance * Guarantor: Prateek Llanes TypeRelation to PatientDate of BirthPhone Billing AddressPersonal/MueaqkPanw32/05/1946 [facility] [place] [address] [place] [address] Care Teams Team MemberRelationshipSpecialtyStart DateEnd Date Caleb Villeda MD PCP - GeneralFamily Medicine11/07/23 Caleb Villeda MD [address] [place] [address] [facility] 11/23/24
--- NOTE | 2025-10-04 09:49 | CA_ITS ---
Patient Name: ILIANA FLORES MR#: [id number] : 1945 Exam Date: 10/04/2025 Ordering Doctor: DR MILLER GARCIA M.D. ECHOCARDIOGRAM REPORT PROCEDURE: CA ECHO DOPPLER COMPLETE INDICATIONS: SANDOVAL, CAD COMPARISON: None. DESCRIPTION: COMPLETE ECHOCARDIOGRAM Real-time transthoracic echocardiography with 2D, M-mode, spectral and color flow Doppler performed. QUALITY: Technical quality was good. LEFT VENTRICLE: Normal chamber size. Normal left ventricular wall thickness. Global left ventricular systolic function is normal. Estimated left ventricular ejection fraction is 65%. LV EF: Normal left ventricular ejection fraction, (>55%). DIASTOLIC: Diastolic function is indeterminate. ATRIAL SEPTUM: LEFT ATRIUM: Mild dilatation. RIGHT ATRIUM: Mild dilatation. RIGHT VENTRICLE: Normal chamber size. Normal right ventricular systolic function. TRICUSPID VALVE: Normal mobility and thickness. No stenosis with trivial regurgitation. No evidence of pulmonary hypertension. RVSP 31 mmHg MITRAL VALVE: Normal mobility and thickness. No evidence of mitral valve stenosis. There is no mitral annular calcification. Trivial mitral regurgitation. AORTIC VALVE: Normal trileaflet appearance. Mildly calcified aortic valve. Mildly diminished mobility. Doppler velocity suggest mild aortic valve stenosis. DVI 0.55, ISSAC 2.0 cm, Vmax 2.14 m/s, peak/mean gradient 18/10mmHg. Mild aortic regurgitation. AORTIC ROOT: Normal diameter and appearance. The aortic root measures 3.4 cm. The ascending aorta is normal in size measuring 3.2 cm. PULMONIC VALVE: Normal thickness and mobility. No stenosis. Trivial regurgitation. PERICARDIUM: No evidence of pericardial effusion. IVC: Collapses with inspirations. The IVC is normal in size measuring 1.9 cm. PLEURA: CONCLUSION: 1. Normal left ventricular size and systolic function. Estimated LVEF is 65%. 2. Normal right ventricular size and systolic function. 3. Mild biatrial dilatation. 4. Mildly calcified aortic valve with mild stenosis and mild regurgitation. 5. Normal right-sided pressures. Adult Echocardiography Procedure Report Left Ventricle LVEDD (3.7 - 5.6 cm): 5.14 cm LVESD (2.2 - 4.0 cm): 3.55 cm LVIVS thickness (0.6 - 1.2 cm): 0.93 cm LVPW thickness (0.5 - 1.0 cm): 1.01 cm e': 0.07 m/s E - e': 11.85 LVOT Max Gradient: 5.63 mm[Hg] LVOT Area (cm2): 1.19 m/s Peak Velocity (LVOT): 1.19 m/s Mean Velocity (LVOT): 0.80 m/s LVOT Diameter 2.15 cm Left Ventricular Ejection Fraction: 65% Left Atrium LA Volume Index (2D A2C): 39.79 ml/m2 Left Atrium Systolic Dimension: 4.77 cm Mitral Valve MV E to A Ratio: 0.98 Mitral Valve A-Wave Peak Velocity: 0.82 m/s Mitral Valve E-Wave Peak Velocity: 0.80 m/s Right Ventricle RV Internal Diastolic Dimension: 3.59 cm Aorta AO Root Diam: 3.44 cm Ascending Ao Diam: 3.25 cm Aortic Valve AoV Area (Peak Denys): 2.00 cm2, 2.00 cm2 AoV Area (VTI): 1.99 cm2, 1.99 cm2 Deceleration Sibley: 1.67 m/s2 Pressure Half-Time: 610.80 ms Peak Velocity(Antegrade Flow): 2.14 m/s Peak Gradient(Antegrade Flow): 18.39 mm[Hg] Mean Velocity(Antegrade Flow): 1.49 m/s Mean Gradient(Antegrade Flow): 10.26 mm[Hg] Velocity Time Integral: 48.34 cm Tricuspid Valve Peak Velocity (Regurgitant Flow): 2.47 m/s, 2.65 m/s, 2.47 m/s Pulmonic Valve Mean Gradient: 3.78 mm[Hg], 3.91 mm[Hg] Mean Velocity: 0.93 m/s, 0.95 m/s Peak Velocity: 1.32 m/s Peak Gradient: 7.29 mm[Hg], 6.56 mm[Hg] Right Atrium Right Atrium Systolic Pressure: 69.55 ml, 69.55 ml Dictated by: Willy Arnold M.D. on 10/04/2025 at 17:51 Approved by: Willy Arnold M.D. on 10/04/2025 at 17:54
== END 2025-10-04 09:45 | disposition home or self-care (01) ==
LOC: CARD 09:45
PROVIDERS: PCP Family Medicine; Visit Provider Internal Medicine Interventional Cardiology
DX: R06.09 Other forms of dyspnea (principal); I25.10 Atherosclerotic heart disease of native coronary artery without angina pectoris
CPT/HCPCS: 93306

== ENCOUNTER 2025-10-15 09:16 | Outpatient (OUT) | payer MEDICARE, OTHER, SELFPAY ==
--- OUTSIDE RECORDS SUMMARY | 2025-10-15 09:19 | XMS_ITS | Clinical Summary ---
Author Organization [employer] tem Address [id number] [address] [place] [address] Care Team Providers Care Shine Worker Name Role Phone Caleb Villeda MD Primary Care Provider [phone] Allergies No known active allergies Medications MedicationSigDispense [...] DateDiagnosed DateErectile dysfunction due to diseases classified agvfadgxm51/09/2022Urge uddaycmxowcd52/17/2022Urologic rjffrozpc84/17/2022 Overview (06/25/2022): 1. benign prostatic hyperplasia with obstruction cystoscopy 04/23/2022 with progressively worseningurinary uepsuphwq-36-08 times, nocturia times 2-3, and decreased urinary [...] Benign prostatic hyperplasia with lower urinary tract ovxrowlo60/17/2022 Family History Medical HistoryRelationNameCommentsCoronary artery diseaseFatherFrederick ReineckDepressionFatherFrederick ReineckEarly deathFatherFrederick ReineckHeart diseaseFatherFrederick ReineckCOPDMotherDilcia Hernandez ReineckColon cancerMother Dilcia Hernandez ReineckRelationNameStatusCommentsFatherFrederick ReineckDeceased MotherDilcia Hernandez ReineckDeceased Social History Tobacco UseTypesPacks/DayYears UsedDateSmoking Tobacco: FormerCigarettes Smokeless Tobacco: Never Tobacco Cessation:Counseling Given: Not Answered Alcohol UseStandard Drinks/WeekCommentsYes2 (1 standard drink = 0.6 oz pure alcohol)ChildcareAnswerDate IbjtlrdyNrmkcntvmXnptrij17/12/2019EmploymentAnswer Date XjbpnutyPbydjczwiqPtukyia30/12/2019Hunger ScreeningAnswerDate Recorded Within the past 12 months we worried whether our food would run out before we got money to buy more.Never True07/12/2025Within the past 12 months the food we bought just didn't last and we didn't have money to get more.Never True 07/12/2025Purpose - LifeAnswerDate RecordedPurpose and direction in lifeUnknown 11/27/2020ex and Gender InformationValueDate RecordedSex Assigned at BirthNot on fileLegal RbaLsel9005/22/2015 11:52 AM EDTGender IdentityNot on fileSexual OrientationNot on file Last Filed Vital Signs Vital SignReadingTime TakenCommentsBlood Ybmbhxzc296/7009 11:02 AM EDT Sposd362007/12/2025 11:02 AM EDTTemperature--Respiratory Telo532506/25/2022 10:32 AM EDTOxygen Saturation--Inhaled Oxygen Concentration--Rfaulw13.8 kg (220 lb) 07/12/2025 11:02 AM CMEBwydtq302.3 cm (5' 9 )07/12/2025 11:02 AM EDTBody Mass Index32.49007/12/2025 11:02 AM EDT Plan of Treatment DateTypeDepartmentCare Team (Latest Contact Info)Qnbbvjogrld65/25/2026 10:15 AM EDTOffice Visit [facility] [address] [place] [address] [place] [address] [address] [place] [address] Tulio Cast Jr., MD [address] [place], [place] [address] Health MaintenanceDue DateLast DoneCommentsDepression Iosrkkaqd87/05/1959Fall Risk Xjmqptkft32/05/2012RSV ( or age 60+ yrs) (1 - 1-dose 75+ series) 2021OVID-19 Vaccine (2024- season), 01/25/2025, 06/25/2024, Additional history existsTobacco Nbuostquh07/26/2026 07/12/2025DTaP,Tdap and Td Vaccines (3 - Td or Tdap)9002/22/2019, 03/07/2012Zoster (Shingles) AxrwanoAubiiqyss71/09/2019, 02/22/2019, 05/21/2013 Abdominal Aortic Aneurysm (AAA) OwiwxmWmnoumbki59/03/2022Influenza Vaccine Igrjkvbaz81/09/2025, 06/25/2024, 06/01/2023, Additional history exists Medical Devices Not on file Procedures Procedure NamePriorityDate/TimeAssociated DiagnosisCommentsUS RETROPERITONEAL GBDIBUDQOgrjoiq34/03/2022 3:09 PM EDT Urge incontinence Benign prostatic [...] Date Caleb Villeda MD [address] [place] [address] PCP - GeneralFamily Medicine06/28/25
--- OUTSIDE RECORDS SUMMARY | 2025-10-15 09:20 | XMS_ITS | CCD ---
Author Organization [facility] Care Team Providers Care Mechanic/Welder Name Role Phone CALEB BLANCHARD Referring Unavailable CALEB BLANCHARD Primary Care Unavailable SOPHIA RANDOLPH Attending Unavailable SOPHIA RANDOLPH Admitting Unavailable NADERER, DR CALEB Valdivia Primary Care Unavailable PREM, DR JESSIKA Little Consulting Unavailable ELTAHAWY, DR BHATT Attending Unavailable ELTAHAWY, DR BHATT Admitting Unavailable ELTAHAWY, DR BHATT Consulting Unavailable SOPHIA RANDOLPH Attending Unavailable ZIMATTER, DR TIMMY Rosas Consulting Unavailable SOPHIA RANDOLPH Admitting Unavailable NADERER, DR CALEB Valdivia Primary Care Unavailable SOPHIA RANDOLPH Consulting Unavailable Fifi, Gissel Unavailable Caleb Blanchard MD Primary Care Provider MULU POWERS Attending Unavailable Caleb Blanchard MD Primary Care Provider Caleb Blanchard MD Primary Care Provider Caleb Blanchard MD Unavailable CALEB BLANCHARD Attending Unavailable CALEB BLANCHARD Attending Unavailable CALEB BLANCHARD Attending Unavailable Caleb Blanchard MD Primary Care Provider [phone] ROBERT PINEDA JR Referring Unavailable CALEB BLANCHARD Primary Care Unavailable Caleb Blanchard MD Primary Care Provider [phone] ROBERT PINEDA JR Attending Unavailable CALEB BLANCHARD Referring Unavailable CALEB BLANCHARD Primary Care Unavailable Caleb Blanchard MD Primary Care Provider [phone] Caleb Blanchard MD Unavailable Medications Current Medications MedicationDrug Class(es)DatesSig (Normalized)Sig (Original)allopurinol 100 mg oral tablet (20 sources)Xanthine Oxidase InhibitorStart: 31-24-1163sfwm 1 tablet by mouth once dailyallopurinol (Zyloprim) 100 MG tablet Indications: Gout, unspecified , Gouty arthropathy TAKE 1 TABLET BY MOUTH EVERY DAY 90 tablet 3 03/18/2025 Active amLODIPine 5 mg oral tablet (20 sources)Dihydropyridine Calcium Channel BlockerStart: 35-53-3599ybnr 1 tablet by mouth in the morningamLODIPine (Norvasc) 5 MG tablet Take 1 tablet by mouth in the morning. 07/25/2023 Activeaspirin 81 mg delayed release oral tablet (9 sources)Platelet Aggregation Inhibitor, Nonsteroidal Anti-inflammatory Drug aspirin 81 mg daily. Activeatorvastatin 40 mg oral tablet (20 sources)HMG-CoA Reductase InhibitorStart: 12-44-1843kode 1 tablet by mouth at bedtimeatorvastatin (Lipitor) 40 MG tablet Take 1 tablet by mouth at bedtime 07/25/2023 Activecarvedilol 6.25 mg oral tablet (20 sources)alpha-Adrenergic Sienna, beta-Adrenergic BlockerStart: 07-25-2023 take 1 tablet by mouth in the morningcarvedilol (Coreg) 6.25 MG tablet Take 1 tablet by mouth in the morning and 1 tablet in the evening. Take with meals. 07/25/2023 Activecyclobenzaprine hydrochloride 10 mg oral tablet (3 sources)Muscle RelaxantStart: 13-46-5237sfkd 1 tablet by mouth three times daily as needed for muscle spasmscyclobenzaprine (Flexeril) 10 MG tablet Indications: Neck pain Take 1 tablet (10 mg) by mouth 3 (three) times a day as needed for muscle spasms 30 tablet 1 06/03/2025 ActiveStart: 69-90-8530ztxv 1 tablet by mouth three times daily as needed for muscle spasmscyclobenzaprine (Flexeril) 10 MG tablet Indications: Neck pain Take 1 tablet (10 mg) by mouth 3 (three) times a day as needed for muscle spasms 30 tablet 1 06/03/2025 Active Start: 90-67-6534dtfo 1 tablet by mouth three times daily as needed Cyclobenzaprine HCl 10 MG 1 tab(s) Orally tid prn Apr, ActivediazePAM 10 mg oral tablet (2 sources)Benzodiazepinetake 1 tablet by mouth once, then take 1 tablet by mouth every hourdiazePAM 10 MG TAKE 1 TABLET BY MOUTH ONCE FOR 1 DOSE. TAKE 1 HOUR PRIOR TO PROCEDURE Oral for 1 Days Activelosartan potassium 25 mg oral tablet (20 sources)Angiotensin 2 Receptor BlockerStart: 08-47-1469wcui 1 tablet by mouth in the morninglosartan (Cozaar) 25 MG tablet Take 1 tablet by mouth in the morning. 07/25/2023 ActivepredniSONE 50 mg oral tablet (3 sources)Start: 06-03-2025 End: 62-27-6112yeqq 1 tablet by mouth once dailypredniSONE (Deltasone) 50 MG tablet Indications: Neck pain Take 1 tablet (50 mg) by mouth Daily for6 days 6 tablet 06/03/2025 06/09/2025 ActiveStart: 30-36-0291rqnp 1 tablet by mouth every twelve hoursprednisone 20 MG 1 tablet Orally 2 times a day for 5 Apr, Activesildenafil 20 mg oral tablet (20 sources)Phosphodiesterase 5 InhibitorStart: 02-23-2024 End: 27-53-1846lhxb 1 tablet by mouth once dailysildenafil (Revatio) 20 MG tablet Indications: BPH without urinary obstruction Take 1 tablet (20 mg) by mouth Daily Pulm hypertension 90 tablet 3 02/12/2025 02/12/2026 Activetadalafil 5 mg oral tablet (14 sources)Phosphodiesterase 5 InhibitorStart: 40-98-5995vrbx 1 tablet by mouth in the morningtadalafiL (CIALIS) 5 mg tablet Indications: Erectile dysfunction due to diseases classified elsewhere , Benign prostatic hyperplasia with nocturia , Urge incontinence Take 1 tablet (5 mg total) by mouth in the morning. 90 tablet 3 07/12/2025 ActiveStart: 05-20-2023 End: 71-83-0982xaxj 1 tablet by mouth in the morningtadalafiL (CIALIS) 5 mg tablet Take 1 tablet (5 mg total) by mouth in the morning. 90 tablet 3 06/2907/12/2025 Discontinued (Reorder)take 1 tablet by mouth once daily in the morningTadalafil 5 MG take 1 tablet by mouth every morning Oral for 90 Days Activetamsulosin hydrochloride 0.4 mg oral capsule (20 sources)alpha-Adrenergic BlockerStart: 05-20-2023 End: 46-92-0538wmfi 2 capsules by mouth once dailytamsulosin (FLOMAX) 0.4 mg capsule Take 2 capsules (0.8 mg total) by mouth nightly for 360 days. 180 capsule 3 07/12/2025 07/07/2026 Activetake 1 capsule by mouth once daily tamsulosin (Flomax) 0.4 MG 24 hr capsule Take 0.8 mg by mouth Daily Activetake 1 tablet by mouth every twenty-four hours in the morningtamsulosin (Flomax) 0.4 MG 24 hr capsule Take 1 tablet by mouth in the morning. ActiveTamsulosin HCl 0.4 MG Oral for 90 Days ActivetraMADol hydrochloride 50 mg oral tablet (2 sources)Opioid AgonistStart: 11-30-2023 End: 19-43-8061qknw 1 tablet by mouth four times daily as needed for pain traMADol (Ultram) 50 MG tablet Indications: Chronic left-sided low back pain without sciatica Take 1 tablet (50 mg) by mouth 4 (four) times a day as needed for severe pain for up to 7 days 28 tablet 0 11/30/2023 12/07/2023 Active triamcinolone acetonide 5 mg/ml topical cream (10 sources)CorticosteroidStart: 68-66-8183yykzhvfpsrmrx (Kenalog) 0.5 % cream Indications: Dermatitis Apply topically 3 (three) times a day 60 g 2 05/30/2024 Active Completed/Discontinued Medications MedicationDrug Class(es)DatesSig (Normalized)Sig (Original)ciprofloxacin 3 mg/ml ophthalmic solution (2 sources)Quinolone AntimicrobialStart: 48-08-8469gguz 1 drop(s) into the eye(s) every four hoursCiloxan 0.3 % 1 drop each eye every 4 hrs for 5 day(s) Mar, Not-TakingToradol 30 mg/ml (1 source)Start: 94-89-4599Dhempau 30 mg/ml Apr, 30 mg Problems Active Problems Problem ClassificationProblemDateDocumented DateEpisodic/ChronicCoronary atherosclerosis and other heart disease (15 sources)Multi vessel coronary artery disease; Translations: [Atherosclerotic heart disease of [place] coronary artery without angina pectoris]Onset: 407359-74-1018LnxoznlPvrbnglpn of lipid metabolism (15 sources)Dyslipidemia; Translations: [Hyperlipidemia, unspecified]Onset: 539229-69-7163HgufqgfCuhqvvrln hypertension (17 sources)Benign essential hypertension; Translations: [Essential (primary) hypertension]Onset: 488595-66-0363MzkgqfoPywfkptnuartt symptoms and ill- defined conditions (20 sources)Urge incontinence of urine; Translations: [Urge incontinence]Onset: 909139-79-5201EatssjnJdte and other crystal arthropathies (17 sources)Gouty arthropathy; Translations: [Gout, unspecified]Onset: 244371-06-1436UrniepaBniig valve disorders (2 sources)Nonrheumatic aortic (valve) stenosis; Translations: [Nonrheumatic aortic (valve) stenosis]Onset: 78-28-7933OkulprzTosprifoxap of prostate (20 sources)Benign prostatic hypertrophy without outflow obstruction; Translations: [Benign prostatic hyperplasia without lower urinary tract symptoms]Onset: 729115-99-2346RkepwytKkidqxetvvym with complications and secondary hypertension (2 sources)Hypertensive heart disease without heart failure; Translations: [Hypertensive heart disease withoutheart failure]Onset: 78-57-1856Fkhhqpp Inflammation; infection of eye (except that caused by tuberculosis or sexually transmitteddisease) (1 source)Unspecified conjunctivitisEpisodicMiscellaneous mental health disorders (13 sources)Male erectile disorder; Translations: [Psychosexual dysfunction with inhibited sexual excitement]Onset: 362516-99-6681TeorhvdGcdir aftercare (4 sources)Patient encounter status; Translations: [Other fpc (current) drug therapy]Onset: 849657-82-4489UtaytdxzNqbjd circulatory disease (4 sources)Other specified peripheral vascular diseases; Translations: [OTH SPEC PERIPHERAL VASC DISEASES]Onset: 01-62-7248UkdjsxwZzpny male genital disorders (11 sources)Secondary erectile dysfunction; Translations: [Erectile dysfunction due to diseases classified elsewhere]Onset: 931896-48-5377TvlhsqfPvelf male genital disorders (1 source)Erectile dysfunction due to diseases classified elsewhere; Translations: [Erectile dysfunction due to diseases classified elsewhere]Onset: 32-79-0820UzakrtbUygxw nutritional; endocrine; and metabolic disorders (14 sources)Body mass index 30+ - obesity; Translations: [Obesity, unspecified] Onset: 391008-12-9100SibfsodRjxegibebjg; intervertebral disc disorders; other back problems (19 sources)Chronic low back pain; Translations: [Chronic left-sided low back pain without sciatica]Onset: 285706-30-9586PbhhtuteEyxqijv and strains (1 source)Strain of muscle, fascia and tendon of lower back, initial encounter EpisodicTransient cerebral ischemia (4 sources)Other transient cerebral ischemic attacks and related syndromes; Translations: [OTH TRANS CERB ISCHATTACK REL SYND]Onset: 26-86-0045Qcwychv Past or Other Problems Problem ClassificationProblemDateDocumented DateEpisodic/ChronicAllergic reactions (10 sources)Inflammatory dermatosis; Translations: [Dermatitis, unspecified] Onset: 962290-86-6768QhyaywbgEepdbfyi mellitus without complication (15 sources)Prediabetes; Translations: [Prediabetes]Onset: 631005-72-2050 EpisodicGenitourinary symptoms and ill-defined conditions (13 sources)Disorder of the urinary system; Translations: [Disorder of urinary system, unspecified]Onset: 581014-88-6669TzbfulvvWnll disorders (9 sources)Mood disordersOnset: 047918-63-2786Dqbon aftercare (10 sources)Long-term current use of drug therapy; Translations: [Other fpc (current) drug therapy]Onset: 457445-98-8172Aajfishh Results Test NameValueInterpretationReference RangeFacilityPROSTATIC SPECIFIC ANTIGEN, DIAGNOSTICon 22-18-9737SAGOXEZPA SPEC ANT0.45 ng/mLNormal0.00-4.00ProLamb Healthcare CenterComment on above:Result Comment: The method used for this test is Ghazala Charlotte DXI chemiluminescent immunoassay. Values obtained by different assay methods cannot be used interchangeably.Performed By: #### PSA #### [facility] ([facility]) [address] [place] [address] [facility] ECHO DOPPLER COMPLETEon [id number] [address] Cardiology Report Signed Patient: ILIANA FLORES MR#: [id number] : 1945 Acct:[id number] Age/Sex: 78 / M ADM Date: 10/19/24 Loc: CARD Attending Dr: Mulu Powers M.D. Ordering Physician: Mulu Powers M.D. Date of Service: 10/19/24 Procedure(s): CA echo doppler complete Accession Number(s): [id number] cc: Mulu Powers M.D.; Caleb Blanchard M.D. Patient Name: ILIANA FLORES MR#: [id number] : 1945 Exam Date: 10/19/2024 Ordering Doctor: DR MULU POWERS M.D. ECHOCARDIOGRAM REPORT PROCEDURE: CA ECHO DOPPLER COMPLETE INDICATIONS: Aortic valve stenosis, hypertension COMPARISON: None. DESCRIPTION: COMPLETE ECHOCARDIOGRAM Real-time transthoracic echocardiography with 2D, M-mode, spectral and color flow Doppler performed. QUALITY: Technical quality was good. LEFT VENTRICLE: Normal chamber size. Mild concentric left ventricular hypertrophy. LV EF: Normal left ventricular ejection fraction 65%, no regional wall motion abnormalities DIASTOLIC: Grade I diastolic dysfunction. ATRIAL SEPTUM: Visually appears intact. LEFT ATRIUM: Moderate dilatation. RIGHT ATRIUM: Moderate dilatation. RIGHT VENTRICLE: Normal chamber size. Normal right ventricular systolic function. TRICUSPID VALVE: Normal mobility and thickness. No stenosis with trivial regurgitation. Could not evaluate pulmonary arterial pressure due to lack of adequate tricuspid regurgitation signal MITRAL VALVE: Normal mobility and thickness. No evidence of mitral valve stenosis. There is no mitral annular calcification. No mitral regurgitation. AORTIC VALVE: Normal trileaflet appearance. Mildly calcified aortic valve. Mildly diminished mobility. Doppler velocity suggest mild aortic valve stenosis. DVI 0.4, ISSAC 1.7 cm2, mean pressure gradient 11.5 mmHg. Trivial aortic regurgitation. AORTIC ROOT: Normal diameter and appearance. Aortic arch is normal in size. PULMONIC VALVE: Normal thickness and mobility. No stenosis. No regurgitation. PERICARDIUM: No evidence of pericardial effusion. IVC: Normal size and Collapes with inspirations. PLEURA: CONCLUSION: Mild concentric left ventricular hypertrophy Normal left ventricle systolic function without wall motion abnormalities, ejection fraction 65% Grade 1 diastolic dysfunction Normal right ventricular size and systolic function Mild aortic stenosis Trivial aortic insufficiency Adult Echocardiography Procedure Report Left Ventricle LVEDD (3.7 - 5.6 cm): 4.91 cm LVESD (2.2 - 4.0 cm): 2.81 cm LVIVS thickness (0.6 - 1.2 cm): 1.19 cm LVPW thickness (0.5 - 1.0 cm): 1.13 cm e': 0.08 m/s E - e': 8.02 LVOT Max Gradient: 4.06 mm[Hg] LVOT Area (cm2): 1.01 m/s Peak Velocity (LVOT): 1.01 m/s Mean Velocity (LVOT): 0.77 m/s LVOT Diameter 2.23 cm Left Ventricular Ejection Fraction: Left Atrium LA Volume Index (2D A2C): 42.45 ml/m2 Left Atrium Systolic Dimension: 3.83 cm Mitral Valve MV E to A Ratio: 0.66 MV Max Gradient: MV Mean Gradient: Mitral Valve A-Wave Peak Velocity: 0.94 m/s Mitral Valve E-Wave Peak Velocity: 0.62 m/s Cardiovascular Orifice Area: Right Ventricle RV Internal Diastolic Dimension: Aorta AO Root Diam: 3.39 cm Ascending Ao Diam: Aortic Valve AoV Area (Peak Denys): 1.66 cm2, 2.74 cm2 AoV Area (VTI): 1.69 cm2, 3.01 cm2 Deceleration Bergen: Pressure Half-Time: Peak Velocity(Antegrade Flow): 1.43 m/s, 2.10 m/s, 2.37 m/s Peak Gradient(Antegrade Flow): 8.19 mm[Hg], 17.59 mm[Hg], 22.45 mm[Hg] Mean Velocity(Antegrade Flow): 0.91 m/s, 1.37 m/s, 1.52 m/s Mean Gradient(Antegrade Flow): 4.05 mm[Hg], 9.26 mm[Hg], 11.45 mm[Hg] Velocity Time Integral: 29.25 cm, 44.83 cm, 52.21 cm Tricuspid Valve Peak Velocity (Regurgitant Flow): Peak Velocity: Pulmonic Va (more content not included)...TBHRadiology, Radiologist, - 10/22/2024 [place] [address] Cardiology Report Signed Patient: ILIANA FLORES MR#: [id number] : 1945 Acct:[id number] Age/Sex: 78 / M ADM Date: 10/19/24 Loc: CARD Attending Dr: Mulu Powers M.D. Ordering Physician: Mulu Powers M.D. Date of Service: 10/19/24 Procedure(s): CA echo doppler complete Accession Number(s): [id number] cc: Mulu Powers M.D.; Caleb Blanchard M.D. Patient Name: ILIANA FLORES MR#: [id number] : 1945 Exam Date: 10/19/2024 Ordering Doctor: DR MULU POWERS M.D. ECHOCARDIOGRAM REPORT PROCEDURE: CA ECHO DOPPLER COMPLETE INDICATIONS: Aortic valve stenosis, hypertension COMPARISON: None. DESCRIPTION: COMPLETE ECHOCARDIOGRAM Real-time transthoracic echocardiography with 2D, M-mode, spectral and color flow Doppler performed. QUALITY: Technical quality was good. LEFT VENTRICLE: Normal chamber size. Mild concentric left ventricular hypertrophy. LV EF: Normal left ventricular ejection fraction 65%, no regional wall motion abnormalities DIASTOLIC: Grade I diastolic dysfunction. ATRIAL SEPTUM: Visually appears intact. LEFT ATRIUM: Moderate dilatation. RIGHT ATRIUM: Moderate dilatation. RIGHT VENTRICLE: Normal chamber size. Normal right ventricular systolic function. TRICUSPID VALVE: Normal mobility and thickness. No stenosis with trivial regurgitation. Could not evaluate pulmonary arterial pressure due to lack of adequate tricuspid regurgitation signal MITRAL VALVE: Normal mobility and thickness. No evidence of mitral valve stenosis. There is no mitral annular calcification. No mitral regurgitation. AORTIC VALVE: Normal trileaflet appearance. Mildly calcified aortic valve. Mildly diminished mobility. Doppler velocity suggest mild aortic valve stenosis. DVI 0.4, ISSAC 1.7 cm2, mean pressure gradient 11.5 mmHg. Trivial aortic regurgitation. AORTIC ROOT: Normal diameter and appearance. Aortic arch is normal in size. PULMONIC VALVE: Normal thickness and mobility. No stenosis. No regurgitation. PERICARDIUM: No evidence of pericardial effusion. IVC: Normal size and Collapes with inspirations. PLEURA: CONCLUSION: Mild concentric left ventricular hypertrophy Normal left ventricle systolic function without wall motion abnormalities, ejection fraction 65% Grade 1 diastolic dysfunction Normal right ventricular size and systolic function Mild aortic stenosis Trivial aortic insufficiency Adult Echocardiography Procedure Report Left Ventricle LVEDD (3.7 - 5.6 cm): 4.91 cm LVESD (2.2 - 4.0 cm): 2.81 cm LVIVS thickness (0.6 - 1.2 cm): 1.19 cm LVPW thickness (0.5 - 1.0 cm): 1.13 cm e': 0.08 m/s E - e': 8.02 LVOT Max Gradient: 4.06 mm[Hg] LVOT Area (cm2): 1.01 m/s Peak Velocity (LVOT): 1.01 m/s Mean Velocity (LVOT): 0.77 m/s LVOT Diameter 2.23 cm Left Ventricular Ejection Fraction: Left Atrium LA Volume Index (2D A2C): 42.45 ml/m2 Left Atrium Systolic Dimension: 3.83 cm Mitral Valve MV E to A Ratio: 0.66 MV Max Gradient: MV Mean Gradient: Mitral Valve A-Wave Peak Velocity: 0.94 m/s Mitral Valve E-Wave Peak Velocity: 0.62 m/s Cardiovascular Orifice Area: Right Ventricle RV Internal Diastolic Dimension: Aorta AO Root Diam: 3.39 cm Ascending Ao Diam: Aortic Valve AoV Area (Peak Denys): 1.66 cm2, 2.74 cm2 AoV Area (VTI): 1.69 cm2, 3.01 cm2 Deceleration Bergen: Pressure Half-Time: Peak Velocity(Antegrade Flow): 1.43 m/s, 2.10 m/s, 2.37 m/s Peak Gradient(Antegrade Flow): 8.19 mm[Hg], 17.59 mm[Hg], 22.45 mm[Hg] Mean Velocity(Antegrade Flow): 0.91 m/s, 1.37 m/s, 1.52 m/s Mean Gradient(Antegrade Flow): 4.05 mm[Hg], 9.26 mm[Hg], 11.45 mm[Hg] Velocity Time Integral: 29.25 cm, 44.83 cm, 52.21 cm Tricuspid Valve Peak Velocity (Regurgitant Flow): Peak Velocity: Pulmonic Valve Mean Gradient: 5.70 mm[Hg] Mean Velocity: 1.11 m/s Peak Velocity: 1.77 m/s, 1.73 m/s Peak Gradient: 11.95 mm[Hg], 12.55 mm[Hg] Right Atrium Right Atrium Systolic Pressure: 58.84 ml, 58.84 ml Dictated by: Thao Villa MD on 10/22/2024 at 18:33 Approved by: Thao Villa MD on 10/22/2024 at 18:42 Dictated By: Thao Villa M.D. Signed By: 10/22/241842 DD/ 41 TD/TT: Farm Equipment Engineer: [facility] HealthcareRadiology Study observation (narrative)[facility] HealthcareCA ECHO DOPPLER COMPLETEOrdered By: Radiologist Radiology on [id number] Healthcare Work Phone: Office Visiton [phone]-up [phone] Iliana Flores 1945 M Date Provider Department [facility] Family History Problem Relation Age of Onset Heart attack Father Heart failure Father Heart murmur Sister Family Status - Relation Status Age at Father Sister Level of Service:[address] [place] OFFICE/OUTPATIENT ESTABLISHED LOW MDM 20 [facility] CAR[facility] ART BILon [id number] CAROTID ART BILEXAMINATION: US CAROTID ART DERRICK HISTORY: Transient cerebral ischemia COMPARISON: No relevant comparison available. TECHNIQUE: Duplex Doppler ultrasound analysis of carotid and vertebral arteries. . Bilateral carotid arterial duplex examination was performed using B-mode, color flow and spectral analysis. Carotid stenosis is reported according to validated velocity parameters, similar to NASCET criteria. FINDINGS: RIGHT CAROTID ARTERY Mild atherosclerotic plaque Subclavian: PSV: 162.4 cm/s cm/s EDV: 0.0 cm/s cm/s CCA: Prox: PSV: 107.6 cm/s cm/s EDV: 12.3 cm/s cm/s Mid: PSV: 101.1 cm/s cm/s EDV: 17.1 cm/s cm/s Distal: PSV: 112.3 cm/s cm/s EDV: 13.9 cm/s cm/s BULB: PSV: 55.1 cm/s cm/s EDV: 9.8 cm/s cm/s ICA: Prox: PSV: 96.3 cm/s cm/s EDV: 13.9 cm/s cm/s Mid: PSV: 51.2 cm/s cm/s EDV: 16.3 cm/s cm/s Distal: PSV: 87.5 cm/s cm/s EDV: 18.9 cm/s cm/s ECA: PSV: 138.2 cm/s cm/s EDV: 12.8 cm/s cm/s VERTEBRAL: PSV: 42.4 cm/s cm/s EDV: 0.0 cm/s cm/s ICA/CCA ratio: PSV: 0.9 EDV: 1.0 LEFT CAROTID ARTERY Mild atherosclerotic plaque Subclavian: PSV: 171.7 cm/s cm/s EDV: 0.0 cm/s CCA: Prox: PSV: 129.9 cm/s cm/s EDV: 11.4 cm/s Mid: PSV: 111.2 cm/s cm/s EDV: 18.3 cm/s Distal: PSV: 97.2 cm/s cm/s EDV: 16.0 cm/s BULB: PSV: 94.9 cm/s cm/s EDV: 11.4 cm/s ICA: Prox: PSV: 134.4 cm/s cm/s EDV: 18.3 cm/s Mid: PSV: 92.5 cm/s cm/s EDV: 20.6 cm/s Distal: PSV: 97.1 cm/s cm/s EDV: 20.6 cm/s ECA: PSV: 143.5 cm/s cm/s EDV: 11.4 cm/s VERTEBRAL: PSV: 46.7 cm/s cm/s EDV: 9.5 cm/s ICA/CCA ratio: PSV: 1.4 EDV: 1.1 IMPRESSION: 0-49% flow stenosis bilateral internal carotid arteries Spectral Doppler US Thresholds (Reference: Pedro EG, et al. Radiology 2000; 214:247-252) Stenosis (%) PSV (cm/sec) VICA/VCCA 0-49 <150 <2.5 50-69 150-225 2.5-4.0 >70 >225 >4.0 Electronically authenticated by: JESSIKA AMARO Date: 2022-09-02 14:39NoDiley Ridge Medical CenterUS ARTERY ARM LTon [id number] ARTERY ARM LTEXAMINATION: US ARTERY ARM LT HISTORY: Peripheral vascular disease (disorder) ; numbness and tingling when left arm resting above head COMPARISON: No relevant comparison available. TECHNIQUE: Color duplex Doppler ultrasound evaluation analysis was performed in the usual manner. FINDINGS: LEFT UPPER EXTREMITY ARTERIAL Subclavian Proximal: 167.8 cm/s / 9.4 cm/s Axillary: 85.7 cm/s / 0.0 cm/s Brachial Proximal: 122.9 cm/s / 0.0 cm/s Distal: 134.4 cm/s / 0.0 cm/s Radial Proximal: 55.5 cm/s / 0.0 cm/s Distal: 98.4 cm/s / 0.0 cm/s Ulnar Proximal: 106.4 cm/s / 0.0 cm/s Distal: 79.0 cm/s / 0.0 cm/s WAVE FORM: Abnormal biphasic waveform throughout upper extremity with reversal of flow during diastole. VESSEL LUMEN: No significant narrowing or atherosclerotic disease. FLOW VELOCITY: Normal flow during systole, but reversal of flow during diastole. IMPRESSION: 1. Abnormal reversal of flow throughout the left upper extremity during diastole. 2. No significant vessel narrowing or atherosclerotic plaque. Electronically authenticated by: TIMMY SOMMER Date: 2022-03-03 13:38WVUMed[facility]ville HospitalCardiovascular Lab Reporton [id number] Lab Report [facility] MR #: [id number] Department of Physician: Alexys Emery M.D. Division of Service Date: 07/16/2021 Cardiology Birthdate: 1945 Adult Cardiovascular Room #: [place] [address] Cardiovascular Laboratory Report FINAL IMPRESSIONS: 1. Severe [...] 2-3 weeks. 7. Follow up with Dr. Blanchard as scheduled. PROCEDURES: Bilateral selective coronary angiography via a left radial approach. METHODS: After risks, benefits, and alternatives were explained, written informed consent was obtained. The patient was prepped and draped in the usual sterile fashion over the left wrist. Using 1% lidocaine solution, local infiltration anesthesia was achieved. Using a modified Seldinger technique and a micropuncture kit, access to the left radial artery was obtained. A 6-[place] glide sheath was inserted without difficulty. Bilateral selective coronary angiography was performed using JR4 and JL4 catheters. After reviewing the images, it was elected to conclude the procedure. All catheters were removed. The radial sheath was removed with application of a TR band per protocol achieving optimal hemostasis. Overall, the patient tolerated the procedure well. There were no overt complications. He was to be transferred to the holding area in stable condition. FINDINGS: Hemodynamics. AO 144/75. LEFT VENTRICULOGRAPHY: This was not performed. CORONARY ARTERIES: Left main coronary artery: This arises from the left coronary cusp. It bifurcates into the left anterior descending and left circumflex coronary artery. It is free of significant stenosis. Left anterior descending coronary artery. This shows a 40% heavily calcific proximal stenosis and a 30% to 40% mid vessel stenosis. It is a long wraparound vessel. Left circumflex coronary artery: This shows mild luminal irregularities and is a small caliber vessel. It gives rise to a moderate-sized high originating first obtuse marginal. This shows an 80% ostial and proximal stenosis prior to bifurcation into a superior and inferior branch. Right coronary artery: This is a large dominant vessel giving rise to the posterior descending and posterolateral branches. It shows mild luminal irregularities. INDICATIONS: Abnormal stress test and CT evidence of coronary artery disease. Electronically Signed by: Mulu Powers M.D. 07/17/2021 03:32 P Mulu Powers M.D. Date Dict: 07/16/2021/03:14 P/Mulu Powers M.D. Date Trans: 07/17/2021 06:48 A/christina DN_JN:[id number] cc: Caleb Blanchard M.D. [address] [facility] [address]PifunxFvoTrinity Health System Twin City Medical CenterBASIC METABOLIC PANEL on 52-36-4844Czqcntr [Mass/Vol]9.3 mg/dLNormal8.6-10.3The [facility] HospitalComment on above:Performed By: #### [id number] #### [facility] [address] [place] [address], USAChloride [Moles/Vol]104 mmol/LGzxlxc23-655Lrb [facility] HospitalComment on above:Performed By: #### 13424 #### [facility] [address] [place] [address], USACO2 [Moles/Vol]30 mmol/MHahnyg36-35Qbc [facility] HospitalComment on above:Performed By: #### [id number] #### [facility] [address] [place] [address], USACreatinine [Mass/Vol]0.93 mg/dLNormal0.70-1.30The [facility] HospitalComment on above:Performed By: #### 52861 #### [facility] [address] [place] [address], USAGFR/1.73 sq M.predicted among blacks MDRD (S/P/Bld) [Vol rate/Area]mL/min/{1.73_m2}Normal>60The [facility] Comment on above:Result Comment: Calculation may not be valid for patients over 70 yearsPerformed By: #### [id number] #### [facility] [address] [place] [address], USAGFR/1.73 sq M.predicted among non-blacks MDRD (S/P/Bld) [Vol rate/Area]mL/min/{1.73_m2}Normal>60The [facility] Comment on above:Result Comment: Calculation may not be valid for patients over 70 yearsPerformed By: #### [id number] #### [facility] [address] [place] [address], USAGlucose [Mass/Vol]115 mg/fJFlkd66-255Yrd [facility] HospitalComment on above:Performed By: #### 30590 #### [facility] [address] [place] [address], USAPotassium [Moles/Vol]4.2 mmol/LNormal3.5-5.1The [facility] HospitalComment on above:Performed By: #### 99004 #### [facility] [address] [place] [address], USASodium [Moles/Vol]138 mmol/GXykenx630-104Gks [facility] HospitalComment on above:Performed By: #### 10949 #### [facility] [address] [place] [address], USAUrea nitrogen [Mass/Vol]17 mg/dLNormal7-25The [facility] HospitalComment on above:Performed By: #### 63320 #### [facility] [address] [place] [address], USACREATININE BLOODon 90-68-2882Obhkxiafrx [Mass/Vol]0.88 mg/dLNormal0.70-1.30The [facility] HospitalComment on above: Performed By: #### 11718 #### [facility] [address] [place] [address], USAGFR/1.73 sq M.predicted among blacks MDRD (S/P/Bld) [Vol rate/Area]mL/min/{1.73_m2}Normal>60The [facility] Comment on above:Result Comment: Calculation may not be valid for patients over 70 yearsPerformed By: #### [id number] #### [facility] [address] [place] [address], USAGFR/1.73 sq M.predicted among non-blacks MDRD (S/P/Bld) [Vol rate/Area]mL/min/{1.73_m2}Normal>60The [facility] Comment on above:Result Comment: Calculation may not be valid for patients over 70 yearsPerformed By: #### [id number] #### [facility] [address] [place] [address], USACT HEART CORONARY CALCIUM WO CONTRASTon 52-25-4738JA HEART CORONARY CALCIUM WO CONTRASTUnFlower Hospital Department of Radiology [address] [place] [id number] Patient Name: ILIANA FLORES : 1945 Sex: M Age: Race: White Pt. Location: [facility] Patient Status: D Ordered Date: 06/11/2021 9:00:00 AM Completed Date: 06/26/2021 12:00 PM Requesting Provider: SOPHIA RANDOLPH Attending Provider: SOPHIA RANDOLPH Report Copy To: CALEB BLANCHARD Signs & Symptoms: R94.39 Abnormal result of other cardiovascular function study I10 History: Order in RIS Patient will need labs no caffeine 6 hrs prior npo 4 hrs prior *has 2 ct's Comments: Exam: CT HEART CORONARY CALCIUM WO CONTRAST CT HEART CORONARY CALCIUM WO CONTRAST 06/26/2021 12:00 PM CLINICAL INDICATIONS: R94.39 Abnormal result of other cardiovascular function study I10 TECHNOLOGIST COMMENTS: CTA to assess coronary arteries at this time he does not recommend cardiac cath. QUESTIONS PER RADIOLOGIST: PROTOCOL: TECHNIQUE: Multidetector CT axial slices through the inferior margin of the heart were obtained without IV contrast using prospective ECG gating. Multiplanar reformats, MIP, volume rendered 3-D images were generated on a separate workstation and reviewed to further define anatomy and possible pathology. All CT scans at this facility use dose modulation, iterative reconstruction, and/or weight based dosing when appropriate to reduce radiation dose to as low as reasonably achievable. COMPARISON: None. Agatston Score: The total (aggregate) calcium score using the AJ-130 method is 802. Individual major vessel AJ-130 scores are: LM = 5.5 LAD = 611 LCX = 0 RCA = 186 Other = 0 ADDITIONAL FINDINGS: The cardiac chambers are normal. Other lung findings: Visualized parts of the lungs appear unremarkable. Airway: Normal. Pleura: No pleural effusion, thickening, or pneumothorax. Thoracic aorta and great vessels: Normal in diameter with mild vascular calcification in the descending thoracic aorta. Pulmonary arteries: Normal. Heart and pericardium: Normal. Lymph nodes: No enlarged thoracic lymph nodes. Small calcified granulomatous lymph node in the left hilar region. Thoracic spine: Bony spurring suggesting mild thoracic spondylosis Chest wall: Normal. Visualized upper abdomen: Normal. IMPRESSION: Total calcium scoring of 802 suggesting moderate likelihood of significant coronary artery disease and single vessel which is more likely involving the LAD Mild thoracic spondylosis and small calcified lymph node in the left hilar region likely granulomatous in nature. Electronically signed: Juan Purcell. Transcribed by: [email or web address], User Resident: Electronically Signed by: JUAN ISACC @ 06/30/2021 09:59 AMNormalThe [facility] HospitalCTA HEART-CORONARY/ ARTERY BYPASS GRAFT WITH 3DPPon 36-37-7336HUJ HEART-CORONARY/ ARTERY BYPASS GRAFT WITH 3DPPUnFlower Hospital Department of Radiology [address] [place] [id number] Patient Name: ILIANA FLORES : 1945 Sex: M Age: Race: White Pt. Location: Patient Status: D Ordered Date: 06/09/2021 9:10:00 AM Completed Date: 06/26/2021 12:00 PM Requesting Provider: SOPHIA RANDOLPH Attending Provider: SOPHIA RANDOLPH Report Copy To: CALEB BLANCHARD Signs & Symptoms: R94.39 Abnormal result of other cardiovascular function study I10 CTA to assess coronary arteries at this time he does not recommend cardiac cath. History: Deana Patient will need labs no caffeine 6 hrs prior npo 4 hrs prior *has 2ct's Comments: Exam: CTA HEART-CORONARY/ ARTERY BYPASS GRAFT WITH 3DPP CTA HEART-CORONARY/ ARTERY BYPASS GRAFT WITH 3DPP 06/26/2021 12:00 PM SIGN AND SYMPTOMS: R94.39 Abnormal result of other cardiovascular function study I10 CTA to assess coronary arteries at this time he does not recommend cardiac cath. TECHNOLOGIST COMMENTS: CTA to assess coronary arteries at this time he does not recommend cardiac cath. QUESTIONS PER RADIOLOGIST: PROTOCOL: Axial CT angiography images were obtained with IV contrast. CONTRAST: Contrast: OMNIPAQUE 350 (LOCM), 100 milliliter, Intravenous TECHNIQUE: Multidetector CT angiogram was obtained using prospective ECG gating. Imaging was performed from the level of the clavicles to the level of the hemidiaphragms. In order to provide better evaluation of the anatomy and disease process, advanced off-line 3-D post-processing techniques, including curvilinear analysis of the coronary arteries and ejection fraction calculation were performed. Medication administered in preparation for the examination located in nursing documentation. COMPARISON: None. CORONARY ARTERY ANGIOGRAM FINDINGS: Stenoses are reported as maximum percentage diameter stenosis. Stenosis grading is reported using the following scheme: Normal: no stenosis Mild: 1-49% stenosis Moderate: 50-70% stenosis Severe: >70% stenosis Occluded Dominance of the coronary artery system: right with normal origins and course. Left Main: The left main is a normal caliber vessel which gives rise to the LAD and circumflex arteries The left main with small calcified plaque. No significant stenosis is appreciated. Left Anterior Descending Artery: The proximal left anterior descending artery and first diagonal branch with calcified and noncalcified plaque. The mid-distal LAD, D2 and D3 branches with no significant plaque. There is moderate stenosis in the proximal LAD of at least 50-70%. Left Circumflex Artery: The left circumflex artery and its obtuse marginal branches with no significant plaque. However, circumflex and obtuse marginal branches are very small in caliber and tapers quickly Right Coronary Artery: The right coronary artery and acute marginal branches with calcified mild plaque. There is mild stenosis of less than 50% in the proximal RCA Cardiac Morphology: The right atrium is normal. The right ventricle is normal. The left atrium is normal. The left ventricle is normal. The pericardium is normal and there is no pericardial effusion. Cardiac Function: {reported only if retrospective ECG gating has been used} The calculated left ventricular ejection fraction is 69%, the left ventricular end-diastolic volume is 160 ml, and the left ventricular end-systolic volume is 50 ml. The stroke volume is 110 mL There is normal wall motion of the left ventricle EXTRACARDIAC FINDINGS: Other lung findings: Visualized part of the lungs did not reveal any focal consolidation. Airway: Normal. Pleura: No pleural effusion, thickening, or pneumothorax. Thoracic aorta and great vessels: Normal in diameter. Mild calcification in the descending thoracic aorta Pulmonary arteries: Normal. Heart and pericardium: Normal. Lymph nodes: No enlarged thoracic lymph nodes. Thoracic spine: Bony spurring suggesting thoracic spondylosis Chest wall: Normal. Visualized upper abdomen: Normal. IMPRESSION: 1. Mild calcified plaques in the proximal RCA with less than 50% stenosis and moderate calcified and noncalcified plaques in the proximal LAD with moderate stenosis of 50-70%. Small caliber of the left circumflex and obtuse marginal branches. 2. Normal global and regional wall motion and function of the LV. Normal ejection fraction of 69% 3. Mild thoracic spondylosis 4. Mild vascular calcification in the descending thoracic aorta All CT scans at this facility use dose modulation, iterative reconstruction, and/or weight based dosing when appropriat (more content not included)...NormalThe [facility] Vital Signs Date TimeVital SignValuePerforming GimqopxqxSkykeodr02-06-6225 11:02-0400Body .3 cmRobert Pineda Jr., MD Work Phone: [facility]09-26-2025 11:02-0400Body mass index (BMI) [Ratio]32.49 kg/c5MhjernRobert Pineda Jr., MD Work Phone: [facility]09-26-2025 11:02-0400Body nllzuk34.79 kgRobert Pineda Jr., MD Work Phone: [facility]09-26-2025 11:02-0400Diastolic blood iqlypjkv46 mm[Hg]Robert Pineda Jr., MD Work Phone: [facility]09-26-2025 11:02-0400Heart rate 73 /minRobert Pineda Jr., MD Work Phone: [facility]09-26-2025 11:02-0400Systolic blood dvwlvzku898 mm[Hg]Robert Pineda Jr., MD Work Phone: [facility]08-18-2025 13:11-0400Body uzumaz748.3 cmCaleb Blanchard MD [facility] Phone[facility]Qxrthjbgdc01-56-2166 13:11-0400Body mass index (BMI) [Ratio]33.08 kg/m2Caleb Blanchard MD Work Phone: [facility] HospitalBgdnufawsx64-25-2237 13:11-0400Body temperature 97.5 [degF]Caleb Blanchard MD Work Phone: [facility] HospitalAfcqspcqwj01-47-7065 13:11-0400Body .61 kgCaleb Blanchard MD Work Phone: [facility] HospitalWlcfvhlxer57-88-3235 13:11-0400Diastolic blood qlhfsruw66 mm[Hg]Caleb Blanchard MD Work Phone: [facility] HospitalZmdiceibeo26-55-1842 13:11-0400Heart rate71 /min Caleb Blanchard MD Work Phone: [facility] HospitalYiabyolxiw30-91-2067 13:11-0400Respiratory rate18 /minCaleb Blanchard MD Work Phone: [facility] HospitalPtfmzanqmy80-43-9518 13:11-1760JtJ5% (BldA) [Mass fraction]96 %Caleb Blanchard MD Work Phone: [facility] HospitalLdahueteoa31-13-3871 13:11-0400Systolic blood fqraqlty622 mm[Hg]Caleb Blanchard MD Work Phone: [facility] HospitalFzxmkchggo71-80-5385 09:12-0400Body dmuzjs468.3 cmCaleb Blanchard MD Work Phone: [facility] HospitalRjgciccwxk70-96-2977 09:12-0400Body mass index (BMI) [Ratio]32.78 kg/m2Caleb Blanchard MD Work Phone: [facility] HospitalSghqrrcuyx43-89-6706 09:12-0400Body temperature 97.3 [degF]Caleb Blanchard MD Work Phone: [facility] HospitalRevkckoycw26-20-7856 09:12-0400Body yilgxf880.7 kgCaleb Blanchard MD Work Phone: [facility] HospitalDzgltlcebr14-25-7953 09:12-0400Diastolic blood ijttagwg52 mm[Hg]Caleb Blanchard MD Work Phone: [facility] HospitalAddvdgwksv55-32-3391 09:12-0400Heart rate57 /min Caleb Blanchard MD Work Phone: [facility] HospitalFptziwdtuy37-59-2421 09:12-0400Respiratory rate18 /minCaleb Blanchard MD Work Phone: [facility] HospitalYouoqrfypm27-62-2036 09:12-6486FnP3% (BldA) [Mass fraction]96 %Caleb Blanchard MD Work Phone: [facility] HospitalKhhcbrcwvc40-21-5067 09:12-0400Systolic blood mm[Hg]Caleb Blanchard MD Work Phone: [facility] HospitalQwynmajnca90-08-8036 10:43-0500Body kdvetn503.3 cmCaleb Blanchard MD Work Phone: [facility] HospitalZfkuextpil70-86-7786 10:43-0500Body mass index (BMI) [Ratio]32.93 kg/m2Caleb Blanchard MD Work Phone: [facility] HospitalFstjcjvcma32-82-6727 10:43-0500Body temperature 97.5 [degF]Caleb Blanchard MD Work Phone: [facility] HospitalPzmnkrjslo53-26-7142 10:43-0500Body ojcevt489.15 kgCaleb Blanchard MD Work Phone: [facility] HospitalTkwkutcrmo41-27-3061 10:43-0500Diastolic blood ludswgbp32 mm[Hg]Caleb Blanchard MD Work Phone: [facility] HospitalBxyrpptgmh32-52-0332 10:43-0500Heart rate69 /min Caleb Blanchard MD Work Phone: [facility] HospitalBpmebajcbo85-25-2253 10:43-0500Respiratory rate20 /minCaleb Blanchard MD Work Phone: [facility] HospitalBprpurjzha76-82-4657 10:43-0685AtU6% (BldA) [Mass fraction]96 %Caleb Blanchard MD Work Phone: [facility] HospitalTwllgssems84-85-4247 10:43-0500Systolic blood kxakbodf502 mm[Hg]Caleb Blanchard MD Work Phone: [facility] HospitalUqtmzveguv68-57-6445 09:22-0400Body ijwypz337.3 cmRobert Pineda Jr., MD Work Phone: [facility]09-13-2024 09:22-0400Body mass index (BMI) [Ratio]32.19 kg/h5YxtsliRobert Pineda Jr., MD Work Phone: [facility]09-13-2024 09:22-0400Body tyngdd41.88 kgRobert Pineda Jr., MD Work Phone: [phone]09-13-2024 09:22-0400Diastolic blood lulprsbt37 mm[Hg]Robert Pineda Jr., MD Work Phone: [facility]09-13-2024 09:22-0400Heart rate 68 /minRobert Pineda Jr., MD Work Phone: [facility]09-13-2024 09:22-0400Systolic blood zkoguqga193 mm[Hg]Robert Pineda Jr., MD Work Phone: [facility]02-14-2024 08:26-0500Body fnldfe612.3 cmCaleb Blanchard MD Work Phone: [facility] HospitalVwfeaduwqf47-84-6412 08:26-0500Body mass index (BMI) [Ratio]33.08 kg/m2Caleb Blanchard MD Work Phone: [facility] HospitalZnjlyscyqf49-62-3253 08:26-0500Body temperature 97.5 [degF]Caleb Blanchard MD Work Phone: [facility] HospitalBifnbprdrm72-67-7365 08:26-0500Body .61 kgCaleb Blanchard MD Work Phone: [facility] HospitalAawsfucwhd72-25-9708 08:26-0500Diastolic blood mplmkjif20 mm[Hg]Caleb Blanchard MD Work Phone: noSaint [facility] CenterTphacrjllb05-07-1676 08:26-0500Heart rate73 /min Caleb Blanchard MD Work Phone: [facility] HospitalBuyzbyxupo11-98-2375 08:26-1763ZaM2% (BldA) [Mass fraction]95 %Caleb Blanchard MD Work Phone: [facility] HospitalSuuyzttwin78-44-4058 08:26-0500Systolic blood yijsvwmh884 mm[Hg]Caleb Blanchard MD Work Phone: [facility] HospitalCyabmqpjkl53-75-9201 10:00-0400Body nhgoac975.26 cmPalta [employer] Other [employer] Other 07-06-2023 10:00-0400Body mass index (BMI) [Ratio] 32.63 kg/j2GvzziuGissel [employer] Other [employer] Other 07-06-2023 10:00-0400Body .3 [degF]Gissel [employer] Other [employer] Other 07-06-2023 10:00-0400Body yrlkmm251.25 kgGissel [employer] Other [employer] Other 07-06-2023 10:00-0400Respiratory rate18 /minGissel [employer] Other [employer] Other 07-06-2023 10:00-6293XwL1% (BldA) [Mass fraction]96 % Gissel [employer] Other [employer] Other 06-07-2023 15:10-0400Body ruzwqa263.26 cmPamelmoises [employer] Other [employer] Other 06-07-2023 15:10-0400Body mass index (BMI) [Ratio] 32.69 kg/d3CkhrnlGissel [employer] Other [employer] Other 06-07-2023 15:10-0400Body wjcyslsmluw54.4 [degF]Gissel Shannonmond Other [employer] Other 06-07-2023 15:10-0400Body nwwupf245.43 kgGissel [employer] Other [employer] Other 06-07-2023 15:10-0400Diastolic blood wkextbyk68 mm[Hg] Gissel Shannonmond Other [employer] Other 06-07-2023 15:10-0400Respiratory rate18 /minGissel [employer] Other [employer] Other 06-07-2023 15:10-5287VzY2% (BldA) [Mass fraction]94 % Gissel Shannonmond Other [employer] Other 06-07-2023 15:10-0400Systolic blood namgegvg643 mm[Hg] Gissel Shannonmond Other [employer] Other Encounters Encounter DateEncounter TypeCare ProviderFacilityStart: 07-12-2025 End: 91-69-6715Ddtati outpatient visit 25 minutesRobert Pineda MD Work Phone: [facility] Genito-Urinary SurgeonsComment on above:Erectile dysfunction due to diseases classified elsewhere (Primary Dx); Benign prostatic hyperplasia with nocturia; Urge incontinence; Urologic disordersStart: 07-12-2025 End: 16-27-6062tlvpkvuetzFFGEDL K EMMERT [facility] Start: 23-55-2033xggudjjbpbGONPLS K EMMERT [facility] Hospitaltart: 06-25-2025 End: 61-24-3208Mlcmmsdod encounterRobert Pineda MD Work Phone: [facility] Genito-Urinary SurgeonsStart: 06-03-2025 End: 16-73-7369Uzbavq Shailesh Blanchard MD Work Phone: [facility] FMStart: 06-03-2025 End: 74-38-2478Eihbhd Shailesh Blanchard MD Work Phone: [facility] FMStart: 06-03-2025 End: 74-73-9665mbdjwjnelxMXQO NADERERNot AvailableStart: 06-03-2025 End: 94-97-5069Bmvscg outpatient visit 15 minutesCaleb Blanchard MD Work Phone: [facility] CWM FMComment on above:Neck pain (Primary Dx) Start: 04-16-2025 End: 77-14-4875Pmnrsv Shailesh Blanchard MD Work Phone: [facility] FMStart: 04-16-2025 End: 36-90-3860Clfmgj Shailesh Blanchard MD Work Phone: [facility] FMStart: 04-16-2025 End: 61-76-9107Uawhnk outpatient visit 15 minutesCaleb Blanchard MD Work Phone: [facility] C[facility] FMComment on above:Essential hypertension, benign (Primary Dx); Arthritis, gouty; BPH without urinary obstructionStart: 04-16-2025 End: 31-75-5451qrpszmwklvWSNH NADERERNot AvailableStart: 10-22-2024 End: 27-77-1754Bcxovxveq Result EncounterGeneric External Data ProviderNOMS External Department UnsolicitedStart: 10-22-2024 End: 73-11-0720Ccyfojmlf Result EncounterGeneric External Data ProviderNOMS External Department UnsolicitedStart: 10-03-2024 End: 59-40-0872oqvljsuqnfIIUC [facility] Hospitaltart: 09-20-2024 End: 89-78-2258Mrdnwc flowsNgoc Blanchard MD Work Phone: [facility] C[facility] FMStart: 09-20-2024 End: 88-81-4716Vhyuab Shailesh Blanchard MD Work Phone: [facility] CWM FMStart: 09-20-2024 End: 41-73-5140Ebxsqtk encounter Zeynep Blanchard MD Work Phone: [facility] Work Phone: Start: 09-20-2024 End: 62-21-2979Ytpqci follow up visit related to original Letty Blanchard MD Work Phone: [facility] CW FMComment on above:Medicare annual wellness visit, subsequent (Primary Dx)Start: 09-20-2024 End: 45-16-0260brgloqwnfvSOQZ NADERERNot AvailableStart: 08-20-2024 End: 15-86-8612XzkcvgXszrnq K Emmert MD Work Phone: [facility] Genito-Urinary SurgeonsStart: 06-29-2024 End: 33-88-3746Gmodij outpatient visit 25 minutesRobert Pineda MD Work Phone: [facility] Genito-Urinary SurgeonsComment on above:Urologic disorders (Primary Dx); Urge incontinence; Benign prostatic hyperplasia with nocturiaStart: 05-25-2024 End: 40-11-5390Zmayowfij encounterRobert Pineda MD Work Phone: [facility] Genito-Urinary SurgeonsStart: 26-48-3032Pwtkys flowsNgoc Blanchard MD Work Phone: [facility] CW FMStart: 25-82-9481Qmrqaj flowsNgoc Blanchard MD Work Phone: [facility] FMStart: 11-30-2023 End: 14-10-0705Bgnkuu outpatient visit 25 minutesCaleb Blanchard MD Work Phone: [facility] CWM FMComment on above:Essential hypertension, benign (CMS/HCC) (Primary Dx); Arthritis, gouty; BPH without urinary obstruction; Chronic left-sided low back pain without sciatica; Dyslipidemia (CMS/HCC); Prediabetes; Obesity (BMI 30-39.9); Encounter for long-term current use of medicationStart: 04-21-2023 End: 14-40-4827hzhhrekkceLkrlnh Fifi Other [employer] Other Start: 52-55-6920Ytkixt outpatient visit 15 minutes Gissel DyMeghanG Urgent Care ClydeStart: 03-23-2023 End: 56-18-0538djiuoaiwzrDemwtc [employer] Other [employer] Other Start: 67-11-1666Dsrxdj outpatient new 10 minutes Gissel DymondFPG Urgent Care ClydeStart: 09-02-2022 End: 22-04-7077kaquldnofvQR CALEB A NADERERFacility:B6Soqsy: 03-03-2022 End: 06-09-4386wrmyyxllzxDMRZCWE BOESFacility:S6Pqzwu: 07-16-2021 End: 26-36-6472wedtubxogyNUXC NADERERFacility:[facility] Procedures DateProcedureProcedure DetailPerforming ClinicianStart: 64-38-6530Nmpxyi-up visitFollow-upROBERT PINEDA JRStart: 37-61-9328EY ECHO DOPPLER COMPLETEGeneric External Data Provider Plan of Treatment DateCare ActivityDetailAuthorStart: 81-43-2076TRxK,Tdap and Td Vaccines (3 - Td or Tdap)DTaP,Tdap and Td Vaccines (3 - Td or Tdap)[facility]Start: 25-98-0732Bnndtqf ScreeningTobacco ScreeningProNewark Hospital SystemStart: 07-11-2026 End: 88-79-2851Bxffxzc encounter tmiofobmz73/25/2026 10:15 AM EDT Office Visit [facility] [address] [place] [address] [address] [facility] [place] [address] Robert Pineda Jr., MD [facility] [place] [address] [facility]ito-Urinary SurgeonsStart: 06-25-2026 End: 90-10-2530Yurzjgakx specific antigen, diagnosticProstatic specific antigen, diagnostic Lab Routine Erectile dysfunction due to diseases classified e lsewhere Benign prostatic hyperplasia with nocturia Urge incontinence Expected: 06/25/2026, Expires: 06/12/2027[facility] Work Phone: Comment on above:Expected: 06/25/2026, Expires: 06/12/2027Start: 10-22-2025 End: 07-02-6295Yohwccs encounter pxkvrkufl19/06/2026 9:30 AM EST Office Visit [facility] [address] [place] [id number] Caleb Blanchard MD [address] [place] [address] [facility] FMStart: 12-05-2025Medicare Annual Wellness (AWV)Medicare Annual Wellness (AWV)[facility] HealthcareStart: 07-12-2025 End: 80-37-5640Dtnuhfs encounter vpytjlklg31/26/2025 9:30 AM EDT Office Visit [facility] [address] [place], [place] [address] [address] [facility] [address] Robert Pineda Jr., MD [address] [place] [address] [facility] Genito-Urinary SurgeonsStart: 51-06-8782Axycb BMI ScreeningAdult BMI ScreeningProNewark Hospital SystemStart: 06-29-2025 End: 28-54-3395Ojbwtvbxw specific antigen, diagnosticProstatic specific antigen, diagnostic Lab Routine Urge incontinence Benign prostatic hyperplasia with nocturia Expected: 06/29/2025, Expires: 05/30/2026[facility] Work Phone: Comment on above:Expected: 06/29/2025, Expires: 05/30/2026Start: 37-11-4548Tpbnjex ScreeningTobacco ScreeningTwin City Hospital SystemStart: 84-26-4304TCBFW-19 Vaccine ( season)COVID-19 Vaccine ()[facility] SystemStart: 83-97-4883Vdxerlgmf vaccinationNOSD HealthcareStart: 04-16-2025 End: 53-33-6073Nybczqv encounter rbsjerfem79/01/2025 9:15 AM EDT Office Visit [facility] [address] [place] [address] Caleb Blanchard MD [address] [place] [address] ArrivedMETHODIST HOSPITAL [facility]CR[facility] FMComment on above:ArrivedStart: 04-08-2025 End: 99-45-3195Upnimmk encounter zznhzhhav22/23/2025 8:15 AM EDT Office Visit [facility] [address] [place] [address] Caleb Blanchard MD [address] [place] [phone] [facility] FMStart: 09-20-2024 End: 89-36-9301Rmvrgyb encounter wrxrxcjmu80/05/2024 10:45 AM EST Office Visit [facility] [address] [place] [address] Caleb Blanchard MD [address] [place] [address] ArrivedNOMS [facility] FMComment on above:ArrivedStart: 06-29-2024 End: 45-53-0416Bdbderm encounter acnpqhczo50/13/2024 9:30 AM EDT Office Visit [facility] [address] [place] [address] Robert Pineda Jr., MD [facility] [place] [address] [facility] Genito-Urinary SurgeonsStart: 53-69-3488Iudyhvylu vaccination Influenza VaccineProNewark Hospital SystemStart: 05-30-2024 End: 58-12-5440Qkwelvy encounter ryakfohyi48/14/2024 8:30 AM EDT [facility] [address] [place] [phone] Caleb Blanchard MD [address] [place] [address] [facility] FMStart: 26-93-1732Kjpys BMI ScreeningAdult BMI ScreeningProRiverside Methodist Hospitalca [facility] SystemStart: 51-56-5695Zajlqmz ScreeningTobacco ScreeningProRiverside Methodist Hospitalca [facility] SystemStart: 11-30-2023 End: 77-24-6237Mbtef metabolic 1998 panel - Serum or PlasmaBasic metabolic panel Lab Routine Essential hypertension, benign (CMS/HCC) Expected: 11/30/2023 (Nazario roximate), Expires: 11/30/2024[facility] HealthcareComment on above:Expected: 11/30/2023 (Approximate), Expires: 11/30/2024Start: 11-30-2023 End: 06-40-5188ZLP W Auto Differential panel - BloodCBC and differential Lab Routine Encounter for long-term current use of medication Expected: 11/30/2023 (Approximate), Expires: 11/30/2024NOSD HealthcareComment on above:Expected: 11/30/2023 (Approximate), Expires: 11/30/2024Start: 11-30-2023 End: 23-51-4550Tymmdmcsuw A1c measurementHemoglobin A1c Lab Routine Prediabetes Expected: 11/30/2023 (Approximate), Expires: 11/30/2024[facility] Work Phone: Comment on above:Expected: 11/30/2023 (Approximate), Expires: 11/30/2024Start: 11-30-2023 End: 68-71-8238Rtghujk function 2000 panel - Serum or PlasmaHepatic function panel Lab Routine Encounter for long-term current use of medication Expected: 11/30/2023 (Approximate), Expires: 11/30/2024N[facility] HealthcareComment on above: Expected: 11/30/2023 (Approximate), Expires: 11/30/2024Start: 11-30-2023 End: 08-51-5421Lzzcj 1996 panel - Serum or PlasmaLipid panel Lab Routine Dyslipidemia (CMS/HCC) Expected: 11/30/2023 (Approximate), Expires: 11/30/2024 [facility] HealthcareComment on above:Expected: 11/30/2023 (Approximate), Expires: 11/30/2024Start: 11-30-2023 End: 53-36-5728Cvpjmyntfpo [Units/volume] in Serum or PlasmaTSH Lab Routine Obesity (BMI 30-39.9) Expected: 11/30/2023 (Approximate), Expires: 11/30/2024 [facility] HealthcareComment on above:Expected: 11/30/2023 (Approximate), Expires: 11/30/2024Start: 11-30-2023 End: 61-66-3309Hbmbkqa encounter yungfnbvw47/14/2024 8:30 AM EST Office Visit [facility] [address] [place] [address] Caleb Blanchard MD [address] [place] [address] [facility] FMComment on above:ArrivedStart: 08-72-9609TQtD,Tdap and Td Vaccines (2 - Td or Tdap)DTaP,Tdap and Td Vaccines (2 - Td or Tdap)[facility] Medical Simulation SystemStart: 49-20-3946Uwihpkzdgfnflu of varicella zoster vaccineZoster (Shingles) Vaccine (2 of 3)[facility] Medical Simulation SystemStart: 84-85-4526Qeub Risk ScreeningFall Risk ScreeningProNewark Hospital SystemStart: 00-44-3906Hovrp BMI Follow Up PlanAdult BMI Follow Up PlanTwin City Hospital SystemStart: 1958 Depression ScreeningDepression ScreeningProSouthern [facility] Medical Centertart: 1945 Medicare Annual Wellness (AWV)Medicare Annual Wellness (AWV)[facility] Healthcare Start: 01-05-1946Medicare Annual Wellness VisitMedicare Annual Wellness Visit [facility] Immunizations Immunization DateImmunizationNotesCare KzfdkrzcFnkcuwus37-15-8138ylcihokfl virus vaccine, unspecified formulationCaleb Blanchard MD Work Phone: [facility] HospitalCvaeqdoajt74-03-5991yzjbqynfy virus vaccine, unspecified formulationRobert Pineda Jr., MD Work Phone: [facility]08-05-2013zoster vaccine, unspecified formulationRobert Pineda Jr., MD Work Phone: [facility] Payers DatePayer CategoryPayerPolicy [id number] IndemnityMEDICAL MUTUAL Member Subscriber Plan / Payer (Effective 2018-Present) Name: Iliana Flores Relation to Subscriber: Self Name: Iliana Flores Payer ID: Not on file Type: Not on file Address: [address] [place] [id number] MUTUAL MMO TRADITIONAL [id number] 2018-Present [phone] [address] [place] [id number] Private Health InsuranceMEDICAL MUTUAL Member Subscriber Plan / Payer (Effective 2015-Present) Name: Iliana Flores Relation to Subscriber: Self Name: Iliana Flores Payer ID: Not on file Type: Not on file Address: [address] [place] [id number] [id number] 1960Medicare [id number] [id number] 2..1.892620.3.57[id number] 2..1.421023.3.57[id number] 2..1.001463.3.57[id number] 2..1.925801.3.57[id number] 2..840.1.492461.3.5[id number] 2.16.840.1.[id number] 2.16.840.1.452685.3.579.2.1286 Social History DateTypeDetailFacilityUnknown if ever smokedNolee's summit hospital [employer] Other Start: 11-23-2023 End: 52-18-4834Cir Assigned At BirthNOSD HealthcareStart: 11-08-2023 End: 91-82-4120Uehzdax smoking status NHISNever smoked tobaccoNOSD Healthcare Start: 11-23-2023 End: 56-47-0959Qbtkbdl of Social functionNOMS HealthcareWithin the last year, have you been afraid of your partner or ex-partner?NoNOMS HealthcareDo you belong to any clubs or organizations such as rastafarian groups, unions, fraMADS or athletic groups, or school groups?YesNOMS HealthcareAre you now , , , , never or living with a partner?MarriedNOMS HealthcareHow often to you have a drink containing alcohol?2-3 time sa weekNOMS HealthcareHow many standard drinks containing alcohol do you have on a typical day?1 or 2NOMS HealthcareHow often do you have 6 or more drinks on 1 occasion? NeverNOMS HealthcareStart: 50-52-4045Gfr hard is it for you to pay for the very basics like food, housing, medical care, and heatingNot hard at allNOMS HealthcareDo you feel stress - tense, restless, nervous, or anxious, or unable to sleep at night because yourmind is troubled all the time - these days [OSQ] Only a littleNOMS Healthcare(I/We) worried whether (my/our) food would run out before (I/we) got money to buy more.Never trueNOMS HealthcareStart: 1945 Sex Assigned At BirthNot on fileNOSD HealthcareStart: 03-02-2022 End: 61-47-2175Fpkbkpc use and exposureSmokeless tobacco non-userSPANISH FORK HOSPITAL Healthcare Start: 51-94-8701Ndbtahi smoking status NHISEx-smokerTwin City Hospital System History of tobacco useCurrent smokerTwin City Hospital SystemHistory of tobacco useCigarette SmokerTwin City Hospital SystemStart: 05-20-2023 End: 28-57-5945Yoofhgays beverage intakeCurrent drinker of alcohol (finding) [facility] SystemStart: 73-12-4469YvbGbpp (finding)[facility] How often do you need to have someone help you when you read instructions, pamphlets, or other written material from your doctor or pharmacy [SILS]Rarely [facility] HealthcareHow often to you have a drink containing alcohol?4 or more times a weekNOSD HealthcareDo you feel stress - tense, restless, nervous, or anxious, or unable to sleep at night because yourmind is troubled all the time - these days [OSQ]To some extentS[facility] Hospital Functional Status DhikHrbasagnkhSibromXtfgjvwy21-49-0666Cqyld score [AUDIT-C]4 04/11/2025 6:15 PM EDT Mychart, GenericNOSaint John's Regional Health CenterEfamytgnna13-41-2893Zaq often do you have a drink containing alcohol?4 or more times a week 04/11/2025 6:15 PM EDT Mychart, Generic 4 or more times a weekNOSaint John's Regional Health CenterYljtgyetda07-74-4858Cim many standard drinks containing alcohol do you have on a typical day?1 or 2 04/11/2025 6:15 PM EDT Mychart, Generic 1 or 2NOMS Mjmiqnlubu81-33-3018Oci often do you have 6 or more drinks on 1 occasion?Never 04/11/2025 6:15 PM EDT Mychart, Generic NeverSoutheast [facility] Hospital Clinical Notes 03-23-2023 to 07-12-2025 Note Date & AofoRuopFkohjkxg85-05-9086 History of Present illness Narrative* Robert Pineda Jr., MD - 07/12/2025 10:45 AM EDT Images from the original note were not included. [address] [place] [address] Patient: Iliana Flores Date of : 1945 Encounter Date: 07/12/2025 History of Present Illness: Chief Complaint: Benign prostatic hyperplasia and ED. See below Urinalysis today: No results for input(s): EXTPOCURCO , EXTPOCURCH , EXTPOCAPP , EXTPOCURBS , EXTPOCURBIL , EXTPOCUKET , EXTPOCUSPG , EXTPOCUHGB , EXTPOCUPRO , EXTPOCUURO , EXTPOCULEU , EXTPOCUNIT , EXTPOCUWBC , EXTPOCUBLD , EXTPOCURBC , EXTPOCUCRY , EXTPOCUBAC , EXTPOCUTREP , EXTPOCUPH , EXTPOCUL EE in the last 72 hours. Last BUN and creatinine: Lab Results Component Value Date BUN 17 11/02/2016 Lab Results Component Value Date CREATININE 0.95 11/02/2016 Last PSA: Lab Results Component Value Date PSA 0.45 06/28/2025 PSA 0.56 05/11/2024 PSA 0.54 04/22/2023 PSA 0.81 04/21/2022 No results found for: PROSTATICSP Past Medical, Family, and Social History Update: The following portions of the patient's history were reviewed and updated as appropriate: allergies, current medications, past family history, past medical history, past social history, past surgicalhistory and problem list. Past Medical History: Diagnosis Date Anxiety Back pain Coronary artery disease GERD (gastroesophageal reflux disease) Gout Hypercholesterolemia Hypertension Obesity Urge incontinence Past Surgical History: Procedure Laterality Date CARDIAC CATHETERIZATION CYSTOSCOPY N/A 04/23/2022 Performed by Robert Pineda Jr., MD at [facility] STRESS TEST TONSILLECTOMY Family History Problem Relation Age of Onset Heart disease Father Depression Father Early Father Coronary artery disease Father COPD Mother Colon cancer Mother Current Outpatient Medications Medication Sig Dispense Refill allopurinoL (ZYLOPRIM) 100 mg tablet amLODIPine (NORVASC) 5 mg tablet aspirin 81 mg daily. atorvastatin (LIPITOR) 40 mg tablet carvediloL (COREG) 6.25 mg tablet losartan (COZAAR) 25 mg tablet sildenafiL, pulm.hypertension, (REVATIO) 20 mg tablet tadalafiL (CIALIS) 5 mg tablet Take 1 tablet (5 mg total) by mouth in the morning. 90 tablet 3 tamsulosin (FLOMAX) 0.4 mg capsule Take 2 capsules (0.8 mg total) by mouth nightly for 360 days. 180 capsule 3 No current facility-administered medications for this visit. (All medications reviewed and updated by provider since last office visit or hospitalization) Allergies: Patient has no known allergies. Tobacco History: Social History Tobacco Use Smoking Status Former Types: Cigarettes Smokeless Tobacco Never (If patient a smoker, smoking cessation counseling offered) Social History: Social History Substance and Sexual Activity Alcohol Use Yes Alcohol/week: 2.0 standard drinks of alcohol Types: 2 Cans of beer per week Review of Systems: General: Negative for chills and fever. Cardiovascular: Negative for chest pain and shortness of breath. Gastrointestinal: Negative for constipation, diarrhea, nausea, and vomitting. -per HPI Physical Exam: BP 132/70 Pulse 73 Ht 175.3 cm (5' 9 ) Wt 99.8 kg (220 lb) BMI 32.49 kg/m The patient appears alert, pleasant, without signs of acute illness, and in no distress. Respirations are unlabored. Penis without lesion or discharge. Testicles descended bilaterally without mass ortenderness . Prostate 40 grams nontender nonnodular. Assessment and Plan: Iliana was seen today for follow-up. Diagnoses and all orders for this visit: Erectile dysfunction due to diseases classified elsewhere - tadalafiL (CIALIS) 5 mg tablet; Take 1 tablet (5 mg total) by mouth in the morning. - Prostatic specific antigen, diagnostic; Future Benign prostatic hyperplasia with nocturia - tadalafiL (CIALIS) 5 mg tablet; Take 1 tablet (5 mg total) by mouth in the morning. - Prostatic specific antigen, diagnostic; Future Urge incontinence - tadalafiL (CIALIS) 5 mg tablet; Take 1 tablet (5 mg total) by mouth in the morning. - Prostatic specific antigen, diagnostic; Future Urologic disorders Other orders - tamsulosin (FLOMAX) 0.4 mg capsule; Take 2 capsules (0.8 mg total) by mouth nightly for 360 days. Problem List Unprioritized Urologic disorders Overview 1. benign prostatic hyperplasia with obstruction cystoscopy 04/23/2022 with progressively worseningurinary lkjtctmsf-24-99 times, nocturia times 2-3, and decreased urinary [...] 6. Patient requested prostate cancer screening 06/25/2022. Urge incontinence Relevant Medications tadalafiL (CIALIS) 5 mg tablet Other Relevant Orders Prostatic specific antigen, diagnostic Erectile dysfunction due to diseases classified elsewhere - Primary Relevant Medications tadalafiL (CIALIS) 5 mg tablet Other Relevant Orders Prostatic specific antigen, diagnostic Benign prostatic hyperplasia with lower urinary tract symptoms Relevant Medications tadalafiL (CIALIS) 5 mg tablet Other Relevant Orders Prostatic specific antigen, diagnostic Follow-up: Patient returns with 0 new complaint in follow-up of his benign prostatic hyperplasia and ED and continues on his pharmacotherapy, and he has stable urgency and urge incontinence but again declines more aggressive evaluation or repeat evaluation and management. Prostate enlarged nontender nonnodular. PSA remains desirable 0.45 previously 0.56. I prescribed again Flomax 0.8 mg nightly and Cialis 5 mg daily, which he can increase to 10 mg p.r.n. for sex. Otherwise he takes a half Viagra 100 mg p.r.n. from primary care for that. Return 12 months with surveillance PSA and sooner as I admonished him for further issues. Thank youvery much. I appreciate being asked to help with this patient's care. Urology service is the provider for the patient's ongoing management of benign prostatic hyperplasia, which is a chronic condition requiring ongoing follow-up. ROBERT PINEDA JR, MD This note was created with the assistance of a speech recognition program. While intending to generate a timely document that accurately reflects the content of the visit, no guarantee can be provided that every grammatical or spelling mistake has been or will be identified or corrected. Thank you for your understanding. documented in this encounterAultman Hospital09-09-2025 Miscellaneous Notes* Telephone Encounter - Leela Giles - 06/25/2025 10:45 AM EDT 06-25-2025 [facility], provider na and needs to r/s 07-12-2025 appt in [place], next available appt. in [place] office with Dr Segun green documented in this encounterAultman Hospital09-09-2025 Telephone encounter Note* Telephone Encounter - Leela Giles - 06/25/2025 10:45 AM EDT 06-25-2025 Called [facility], provider na and needs to r/s 07-12-2025 appt in [place], next available appt. in [place] office with Dr Segun green [facility]08-18-2025 History of Present illness Narrative* Caleb Blanchard MD - 06/03/2025 1:40 PM EDTAssociated Problem(s): Neck pain Recent pain and possibly related to underlying DDD. Treat with prednisone. Use flexeril PRN. Use heat and massage PRN. If no improvement will need x-ray and PT. * Caleb Blanchard MD - 06/03/2025 1:00 PM EDT Images from the original note were not included. Subjective Patient ID: Iliana Flores is a 79 y.o. male who presents for Neck Pain. C/o neck pain over the past 3-4 days. No fall, injury, or trauma. No change in activity or lifting.Pain on left side neck and stiffness in neck. Discomfort to turn head side to side. No pain into shoulders or down arms. No numbness or tingling in hands. Pain off and on during the day. Mild pain and 3-4/10. Not tried OTC. No history of neck pain in past. Review of Systems Constitutional: Negative for fatigue. Respiratory: Negative for cough, shortness of breath and wheezing. Cardiovascular: Negative for chest pain and palpitations. Gastrointestinal: Negative for abdominal pain, diarrhea, nausea and vomiting. Genitourinary: Negative for dysuria. Objective Physical Exam Constitutional: General: He is not in acute distress. Appearance: Normal appearance. HENT: Head: Normocephalic. Right Ear: Tympanic membrane and ear canal normal. Left Ear: Tympanic membrane and ear canal normal. Eyes: Extraocular Movements: Extraocular movements intact. Pupils: Pupils are equal, round, and reactive to light. Cardiovascular: Rate and Rhythm: Normal rate and regular rhythm. Heart sounds: No murmur heard. No friction rub. No gallop. Pulmonary: Breath sounds: Normal breath sounds. No wheezing, rhonchi or rales. Abdominal: General: Bowel sounds are normal. There is no distension. Palpations: Abdomen is soft. Tenderness: There is no abdominal tenderness. There is no guarding or rebound. Musculoskeletal: Left lower leg: No edema. Neurological: Mental Status: He is alert. Assessment/Plan Problem List Items Addressed This Visit Neck pain - Primary Recent pain and possibly related to underlying DDD. Treat with prednisone. Use flexeril PRN. Use heat and massage PRN. If no improvement will need x-ray and PT. Relevant Medications predniSONE (Deltasone) 50 MG tablet cyclobenzaprine (Flexeril) 10 MG tablet documented in this encounterSoutheast Missouri HospitalBxjhlkvzoi89-65-6591 History of Present illness Narrative* Caleb Blanchard MD - 04/16/2025 9:54 AM EDTAssociated Problem(s): Essential hypertension, benign BP controlled and monitor PRN. * Caleb Blanchard MD - 04/16/2025 9:54 AM EDTAssociated Problem(s): BPH without urinary obstruction Symptoms stable and continue flomax. Follow up with urology. * Caleb Blanchard MD - 04/16/2025 9:54 AM EDTAssociated Problem(s): Arthritis, gouty No flares and continue allopurinol. * Caleb Blanchard MD - 04/16/2025 9:15 AM EDT Images from the original note were not included. Subjective Patient ID: Iliana Flores is a 79 y.o. male who presents for Follow-up (6m ). Follow up HTN, gout, and BPH. Checking BP PRN and typically controlled. BP normal today. Taking medication daily and tolerating without side effects. Gout controlled with allopurinol. No joint pain or stiffness. No swelling or erythema. BPH controlled with flomax. Normal stream and not straining tostart flow of urine. Not up as much during night. Able to empty all the way and not dribbling. Following with urology. Review of Systems Constitutional: Negative for fatigue. Respiratory: Negative for cough, shortness of breath and wheezing. Cardiovascular: Negative for chest pain and palpitations. Gastrointestinal: Negative for abdominal pain, diarrhea, nausea and vomiting. Genitourinary: Negative for dysuria. Objective Physical Exam Constitutional: General: He is not in acute distress. Appearance: Normal appearance. HENT: Head: Normocephalic. Right Ear: Tympanic membrane and ear canal normal. Left Ear: Tympanic membrane and ear canal normal. Eyes: Extraocular Movements: Extraocular movements intact. Pupils: Pupils are equal, round, and reactive to light. Cardiovascular: Rate and Rhythm: Normal rate and regular rhythm. Heart sounds: No murmur heard. No friction rub. No gallop. Pulmonary: Breath sounds: Normal breath sounds. No wheezing, rhonchi or rales. Abdominal: General: Bowel sounds are normal. There is no distension. Palpations: Abdomen is soft. Tenderness: There is no abdominal tenderness. There is no guarding or rebound. Musculoskeletal: Left lower leg: No edema. Neurological: Mental Status: He is alert. Assessment/Plan Problem List Items Addressed This Visit Essential hypertension, benign - Primary BP controlled and monitor PRN. BPH without urinary obstruction Symptoms stable and continue flomax. Follow up with urology. Arthritis, gouty No flares and continue allopurinol. documented in this encounterSoutheast Missouri HospitalNzejvbbjut32-68-4250 NoteCardiology Clinic Note Subjective Iliana Flores is a 78 y.o. year old male patient being seen for 1 year follow up CAD, hypertension, hyperlipidemia, and aortic valve stenosis. He had routine labs w/ lipid profile in May 2024. Doing very well. Denies chest pain, SOB, palpitations, and lightheadedness/syncope. Patient Active Problem List Diagnosis Benign prostatic hyperplasia with lower urinary tract symptoms Cardiovascular stress test abnormal Erectile dysfunction due to diseases classified elsewhere Urge incontinence Urologic disorders Essential hypertension Ex-smoker Gout Hyperlipidemia Microscopic hematuria Obesity Positive PPD Family History Problem Relation Name Age of [...] with his arm above his head. He states he noticed this initially after his cardiac catheterization [...] 10/03/2024: Doing well; no new cardiovascular symptoms Review of Systems All other systems reviewed and are negative. Objective Visit Vitals Smoking Status Former Physical Exam General: Awake, alert, NAD Pulm: Breath sounds clear to ascultation bilaterally with no wheeze, crackles or rhonchi Cards: Regular rate and rhythm, S1, S2. No S3 or S4 gallop. Murmur: none Extr: Lower extremity edema: none. Skin: warm, dry, well perfused Neuro: A&Ox3, No gross deficits Allergies No Known Allergies Medications Current Outpatient Medications: allopurinol (Zyloprim) 100 mg tablet, allopurinol 100 mg tablet TAKE 1 TABLET BY MOUTH EVERY DAY, Disp: , Rfl: amLODIPine (Norvasc) 5 mg tablet, TAKE 1 TABLET BY MOUTH EVERY DAY IN THE MORNING, Disp: 90 tablet, Rfl: 3 aspirin 81 mg EC tablet, 1 (one) time each day at the same time., Disp: , Rfl: atorvastatin (Lipitor) 40 mg tablet, TAKE 1 TABLET BY MOUTH AT BEDTIME, Disp: 90 tablet, Rfl: 3 carvedilol (Coreg) 6.25 mg tablet, TAKE 1 TABLET BY MOUTH WITH BREAKFAST AND EVENING MEAL, Disp: 180 tablet, Rfl: 3 losartan (Cozaar) 25 mg tablet, TAKE 1 TABLET BY MOUTH EVERY DAY IN THE MORNING, Disp: 90 tablet, Rfl: 3 tadalafil (Cialis) 5 mg tablet, Take 5 mg by mouth in the morning., Disp: , Rfl: tamsulosin (Flomax) 0.4 mg 24 hr capsule, [...] 2-3 weeks. 7. Follow up with Dr. Blanchard as scheduled. PROCEDURES: Bilateral selective coronary angiography via a left radial approach. Echo 07/01/21 Normal LVSF EF 55-60% No wall motion abnormalities Mild elevated rt sided pressures Mild AO stenosis Cardiac CTA from 06/26/2021 Impression showed mild calcified plaques in the proximal RCA with less than 50% stenosis of moderate calcifi (more content not included)...[facility] [facility] History of Present illness Narrative* Caleb Blanchard MD - 09/20/2024 11:41 AM ESTAssociated Problem(s): Medicare annual wellness visit, subsequent Reviewed labs. Discussed proper diet and regular aerobic exercise. Need aerobic exercise 5-6 days aweek for 30 minutes at a time. Smaller portions and limit total calories. Tetanus every 10 years. Advised not to smoke. * Caleb Blanchard MD - 09/20/2024 10:45 AM EST Images from the original note were not included. Subjective Patient ID: Iliana Flores is a 78 y.o. male who presents for Medicare Annual Wellness Visit Subsequent (wellness). Presents for medicare annual wellness visit. Patient feels well today. Weight unchanged over the past year. Tries to stay active around the house but no regular exercise. Tries to watch diet and eat healthy. Increased fruits and vegetables. Smaller portions and limits snacking. Tries to limit totaldaily calories. Reviewed labs. Review of Systems Constitutional: Negative for fatigue. Respiratory: Negative for cough, shortness of breath and wheezing. Cardiovascular: Negative for chest pain and palpitations. Gastrointestinal: Negative for abdominal pain, diarrhea, nausea and vomiting. Genitourinary: Negative for dysuria. Objective Physical Exam Constitutional: General: He is not in acute distress. Appearance: Normal appearance. HENT: Head: Normocephalic. Right Ear: Tympanic membrane and ear canal normal. Left Ear: Tympanic membrane and ear canal normal. Eyes: Extraocular Movements: Extraocular movements intact. Pupils: Pupils are equal, round, and reactive to light. Cardiovascular: Rate and Rhythm: Normal rate and regular rhythm. Heart sounds: No murmur heard. No friction rub. No gallop. Pulmonary: Breath sounds: Normal breath sounds. No wheezing, rhonchi or rales. Abdominal: General: Bowel sounds are normal. There is no distension. Palpations: Abdomen is soft. Tenderness: There is no abdominal tenderness. There is no guarding or rebound. Musculoskeletal: General: Normal range of motion. Left lower leg: No edema. Neurological: General: No focal deficit present. Mental Status: He is alert. Cranial Nerves: No cranial nerve deficit. Deep Tendon Reflexes: Reflexes normal. Assessment/Plan Problem List Items Addressed This Visit Medicare annual wellness visit, subsequent - Primary Reviewed labs. Discussed proper diet and regular aerobic exercise. Need aerobic exercise 5-6 days aweek for 30 minutes at a time. Smaller portions and limit total calories. Tetanus every 10 years. Advised not to smoke. documented in this encounterSoutheast Missouri [id number] History of Present illness Narrative* Robert Pineda Jr., MD - 06/29/2024 9:30 AM EDT Images from the original note were not included. [address] [place] [address] [facility] [id number] Patient: Iliana Flores Date of : 1945 Encounter Date: 06/29/2024 History of Present Illness: Chief Complaint: Follow up The patient is a 78 y.o. male, an established patient, and is here for follow up benign prostatic hyperplasia and ED. See below. Urinalysis today: No results for input(s): EXTPOCURCO , EXTPOCURCH , EXTPOCAPP , EXTPOCURBS , EXTPOCURBIL , EXTPOCUKET , EXTPOCUSPG , EXTPOCUHGB , EXTPOCUPRO , EXTPOCUURO , EXTPOCULEU , EXTPOCUNIT , EXTPOCUWBC , EXTPOCUBLD , EXTPOCURBC , EXTPOCUCRY , EXTPOCUBAC , EXTPOCUTREP , EXTPOCUPH , EXTPOCUL EE in the last 72 hours. Last BUN and creatinine: Lab Results Component Value Date BUN 17 11/02/2016 Lab Results Component Value Date CREATININE 0.95 11/02/2016 Last PSA: Lab Results Component Value Date PSA 0.56 05/11/2024 PSA 0.54 04/22/2023 PSA 0.81 04/21/2022 No results found for: PROSTATICSP Past Medical, Family, and Social History Update: The following portions of the patient's history were reviewed and updated as appropriate: allergies, current medications, past family history, past medical history, past social history, past surgicalhistory and problem list. Past Medical History: Diagnosis Date Coronary artery disease Gout Hypercholesterolemia Hypertension Obesity Urge incontinence Past Surgical History: Procedure Laterality Date CARDIAC CATHETERIZATION CYSTOSCOPY N/A 04/23/2022 Performed by Robert Pineda Jr., MD at [facility] STRESS TEST TONSILLECTOMY Family History Problem Relation Age of Onset Heart disease Father Depression Father Early Father Coronary artery disease Father COPD Mother Colon cancer Mother Current Outpatient Medications Medication Sig Dispense Refill allopurinoL (ZYLOPRIM) 100 mg tablet allopurinol 100 mg tablet TAKE 1 TABLET BY MOUTH EVERY DAY amLODIPine (NORVASC) 5 mg tablet amlodipine 5 mg tablet TAKE 1 TABLET BY MOUTH EVERY DAY aspirin 81 mg daily. atorvastatin (LIPITOR) 40 mg tablet atorvastatin 40 mg tablet TAKE 1 TABLET BY MOUTH EVERY DAY carvediloL (COREG) 6.25 mg tablet carvedilol 6.25 mg tablet TAKE 1 TABLET BY MOUTH TWICE A DAY losartan (COZAAR) 25 mg tablet losartan 25 mg tablet TAKE 1 TABLET BY MOUTH EVERY DAY sildenafiL, pulm.hypertension, (REVATIO) 20 mg tablet sildenafil (pulmonary hypertension) 20 mg tablet TAKE 1 TABLET BY MOUTH ONCE DAILY tadalafiL (CIALIS) 5 mg tablet Take 1 tablet (5 mg total) by mouth in the morning. 90 tablet 3 tamsulosin (FLOMAX) 0.4 mg capsule Take 2 capsules (0.8 mg total) by mouth nightly. 180 capsule 3 No current facility-administered medications for this visit. (All medications reviewed and updated by provider since last office visit or hospitalization) Allergies: Patient has no known allergies. Tobacco History: Social History Tobacco Use Smoking Status Former Types: Cigarettes Smokeless Tobacco Never (If patient a smoker, smoking cessation counseling offered) Social History: Social History Substance and Sexual Activity Alcohol Use Yes Alcohol/week: 2.0 standard drinks of alcohol Types: 2 Cans of beer per week Review of Systems: General: Negative for chills and fever. Cardiovascular: Negative for chest pain and shortness of breath. Gastrointestinal: Negative for constipation, diarrhea, nausea, and vomitting. -per HPI Physical Exam: BP 153/73 Pulse 68 Ht 175.3 cm (5' 9 ) Wt 98.9 kg (218 lb) BMI 32.19 kg/m The patient appears alert, pleasant, without signs of acute illness, and in no distress. Respirations are unlabored. Penis without lesion or discharge. Testicles descended bilaterally without mass ortenderness . Prostate 30 g nontender nonnodular. Assessment and Plan: Iliana was seen today for follow-up. Diagnoses and all orders for this visit: Urologic disorders Urge incontinence - Prostatic specific antigen, diagnostic; Future Benign prostatic hyperplasia with nocturia - Prostatic specific antigen, diagnostic; Future Other orders - tadalafiL (CIALIS) 5 mg tablet; Take 1 tablet (5 mg total) by mouth in the morning. - tamsulosin (FLOMAX) 0.4 mg capsule; Take 2 capsules (0.8 mg total) by mouth nightly. Problem List Unprioritized Urologic disorders - Primary Overview 1. benign prostatic hyperplasia with obstruction cystoscopy 04/23/2022 with progressively worseningurinary [id number] times, nocturia times 2-3, and decreased urinary [...] 6. Patient requested prostate cancer screening 06/25/2022. Urge incontinence Relevant Orders Prostatic specific antigen, diagnostic Benign prostatic hyperplasia with lower urinary tract symptoms Relevant Orders Prostatic specific antigen, diagnostic Follow-up: Patient returns pleased enough again with his voiding despite some urgency and urge incontinence, for which he actually wears a pad, in follow-up of his benign prostatic hyperplasia and ED. Prostate remains enlarged nontender nonnodular. Essentially unchanged PSA 0.56 previously 0.54 and 0.81. I prescribed again Flomax 0.8 mg nightly and Cialis 5 mg daily, which he can increase to 10 mg on occasion when he want sex. Otherwise he takes a half Viagra 100 mg p.r.n. from primary care for sex. Return 12 months with PSA and sooner for further issues. He again declines more aggressive evaluation or treatment of his prostatism. Urology service is the sole provider for the patient's ongoing management of benign prostatic hyperplasia, which is a chronic condition requiring ongoing follow-up. Thank you very much. I appreciate being asked to help with this patient's care. ROBERT PINEDA JR, MD This note was created with the assistance of a speech recognition program. While intending to generate a timely document that accurately reflects the content of the visit, no guarantee can be provided that every grammatical or spelling mistake has been or will be identified or corrected. Thank you for your understanding. documented in this encounterAultman Hospital08-09-2024 Miscellaneous Notes* Telephone Encounter - Robert Pineda Jr., MD - 05/25/2024 1:53 PM EDT Images from the original note were not included. I had not previously been asked to refill the Cialis as well, but I just did that. Patient Calls (Newest Message First) View All Conversations on this Encounter DUSTY Flores3 hours ago (10:17 AM) DN Thank you Dr. Pineda. I see the tamsulosin has been refilled. Was the tadalafil also refilled? Not seeing it in the medical center only showing the one from 05/2023. documented in this encounterAultman Hospital08-09-2024 Telephone encounter Note* Telephone Encounter - Robert Pineda Jr., MD - 05/25/2024 1:53 PM EDT Images from the original note were not included. I had not previously been asked to refill the Cialis as well, but I just did that. Patient Calls (Newest Message First) View All Conversations on this Encounter Arsen Souza CMA You3 hours ago (10:17 AM) DN Thank you Dr. Pineda. I see the tamsulosin has been refilled. Was the tadalafil also refilled? Not seeing it in epic only showing the one from 05/2023. [facility]08-09-[facility] Miscellaneous Notes* Telephone Encounter - Robert Pineda Jr., MD - 05/25/2024 10:10 AM EDT Order completed Patient Calls (Newest Message First) View All Conversations on this Encounter Arsen Souza CMA routed conversation to You52 minutes ago (9:16 AM) Arsen Souza CMA52 minutes ago (9:16 AM) SARAH Pineda The patient called stating that he needs a refill on tamsulosin (180 tablets -- takes 2 tablets a day) and tadalafil (90 tablets -- takes 1 tablet daily). Patient would like them sent to [facility] in [place], [place]. Previously meds were sent to [facility] but they are closed now. I have pended both medications. Patient has an upcoming appt with you on 06/29/24. Please advise, thank you! * Telephone Encounter - Arsen Souza CMA - 05/25/2024 10:[address] Pineda. I see the tamsulosin has been refilled. Was the tadalafil also refilled? Not seeing it in the medical center only showing the one from 05/2023. documented in this encounterAultman Hospital08-09-2024 Telephone encounter Note* Telephone Encounter - Robert Pineda Jr., MD - 05/25/2024 10:10 AM EDT Order completed Patient Calls (Newest Message First) View All Conversations on this Encounter Arsen Souza CMA routed conversation to You52 minutes ago (9:16 AM) Arsen Souza CMA52 minutes ago (9:16 AM) DN Derian Pineda The patient called stating that he needs a refill on tamsulosin (180 tablets -- takes 2 tablets a day) and tadalafil (90 tablets -- takes 1 tablet daily). Patient would like them sent to [facility] in [place], [place]. Previously meds were sent to [facility] but they are closed now. I have pended both medications. Patient has an upcoming appt with you on 06/29/24. Please advise, thank you! [facility] Telephone encounter Note* Telephone Encounter - Arsen Souza CMA - 05/25/2024 10:[address] Pineda. I see the tamsulosin has been refilled. Was the tadalafil also refilled? Not seeing it in the medical center only showing the one from 05/2023. [facility] Miscellaneous Notes* Telephone Encounter - Robert Pineda Jr., MD - 05/25/2024 10:08 AM EDT A user error has taken place: encounter opened in error, closed for administrative reasons. documented in this encounterAkron Children's HospitalStudent Loan Hero Formerly [facility] [id number] Telephone encounter Note* Telephone Encounter - Robert Pineda Jr., MD - 05/25/2024 10:08 AM EDT A user error has taken place: encounter opened in error, closed for administrative reasons. [facility]02-[facility] History of Present illness Narrative* Caleb Blanchard MD - 11/30/2023 9:17 AM ESTAssociated Problem(s): Essential hypertension, benign (CMS/HCC) BP controlled and monitor PRN. * Caleb Blanchard MD - 11/30/2023 9:17 AM ESTAssociated Problem(s): Chronic left- sided low back pain without sciatica Occasional pain and use ultram PRN. Use heat and massage PRN. If worsens will need x-ray and PT. * Caleb Blanchard MD - 11/30/2023 9:16 AM ESTAssociated Problem(s): BPH without urinary obstruction Symptoms stable and continue flomax. Follow up with urology. * Caleb Blanchard MD - 11/30/2023 9:16 AM ESTAssociated Problem(s): Arthritis, gouty No flares and continue allopurinol. * Caleb Blanchard MD - 11/30/2023 8:30 AM EST Subjective Patient ID: Iliana Flores is a 78 y.o. male who presents for Follow-up (6 m). F/u HTN, gout, and BPH. Checking BP PRN and typically controlled. BP normal today. Taking medication daily and tolerating without side effects. Gout controlled with allopurinol. No joint pain or stiffness. No swelling or erythema. BPH controlled with flomax. Normal stream and not straining to start flow of urine. Not up as much during night. Able to empty all the way and not dribbling. Following with urology. C/o back pain off and on for years. Pain in left low back and severe tightness. Pain worse with activity such as bending and lifting. No radiation into gluteal region or down legs. UsingOTC and mild relief. Review of Systems Constitutional: Negative for fatigue. Respiratory: Negative for cough, shortness of breath and wheezing. Cardiovascular: Negative for chest pain and palpitations. Gastrointestinal: Negative for abdominal pain, diarrhea, nausea and vomiting. Genitourinary: Negative for dysuria. Objective Physical Exam Constitutional: General: He is not in acute distress. Appearance: Normal appearance. HENT: Head: Normocephalic. Right Ear: Tympanic membrane and ear canal normal. Left Ear: Tympanic membrane and ear canal normal. Eyes: Extraocular Movements: Extraocular movements intact. Pupils: Pupils are equal, round, and reactive to light. Cardiovascular: Rate and Rhythm: Normal rate and regular rhythm. Heart sounds: No murmur heard. No friction rub. No gallop. Pulmonary: Breath sounds: Normal breath sounds. No wheezing, rhonchi or rales. Abdominal: General: Bowel sounds are normal. There is no distension. Palpations: Abdomen is soft. Tenderness: There is no abdominal tenderness. There is no guarding or rebound. Musculoskeletal: Left lower leg: No edema. Neurological: Mental Status: He is alert. Assessment/Plan Problem List Items Addressed This Visit Essential hypertension, benign (CMS/HCC) - Primary BP controlled and monitor PRN. Relevant Orders Basic metabolic panel BPH without urinary obstruction Symptoms stable and continue flomax. Follow up with urology. Dyslipidemia (CMS/HCC) Relevant Orders Lipid panel Arthritis, gouty No flares and continue allopurinol. Prediabetes Relevant Orders Hemoglobin A1c Encounter for long-term current use of medication Relevant Orders CBC and differential Hepatic function panel Obesity (BMI 30-39.9) Relevant Orders TSH Chronic left-sided low back pain without sciatica Occasional pain and use ultram PRN. Use heat and massage PRN. If worsens will need x-ray and PT. Relevant Medications traMADol (Ultram) 50 MG tablet documented in this encounterSoutheast Missouri [id number] Evaluation note* Encounter Date Diagnosis Assessment Notes Treatment Notes Treatment Clinical Notes Apr, Strain of lumbar region, initial encounter (ICD-10 - S39.012A) Drink plenty fluids, get plenty of rest. Take the prednisone as prescribed until gone. Take the cyclobenzaprine as prescribed as needed for muscle spasms and stiffness. Be aware the cyclobenzaprine may make you very tired. Limit your lifting and bending for the next couple of days. Follow-up with your family physician if no improvement in 2 to 3 days. Continue home medications as prescribed., Lowback pain home care material was printed [employer] Other 06-07-2023 Evaluation note* Encounter Date Diagnosis Assessment Notes Treatment Notes Treatment Clinical Notes Mar, Conjunctivitis of marichuy th eyes, unspecified conjunctivitis type (ICD- 10 - H10.9) Conjunctivitis home care material was printed Drink plenty fluids, get plenty of rest. Continue home medications as prescribed. Use the eyedrops as prescribed for 5 days. Follow-up with your family physician if no improvement in 2 to 3 days [employer] Other Evaluation note* Diagnosis Essential hypertension, benign (CMS/HCC)- Primary Essential hypertension, benign Arthritis, gouty Gouty arthropathy, unspecified BPH without urinary obstruction Chronic left-sided low back pain without sciatica Dyslipidemia (CMS/HCC) Other and unspecified hyperlipidemia Prediabetes Other abnormal glucose Obesity (BMI 30-39.9) Encounter for long-term current use of medication [facility]* Diagnosis Essential hypertension, benign (CMS/HCC)- Primary Essential hypertension, benign Arthritis, gouty Gouty arthropathy, unspecified BPH without urinary obstruction Chronic left-sided low back pain without sciatica Dyslipidemia (CMS/HCC) Other and unspecified hyperlipidemia Prediabetes Other abnormal glucose Obesity (BMI 30-39.9) Encounter for long-term current use of medication Essential hypertension, benign ([facility]/HCC)- Primary Essential hypertension, benign Arthritis, gouty Gouty arthropathy, unspecified Dermatitis Contact dermatitis and other eczema, due to unspecified cause BPH without urinary obstruction Medicare annual wellness visit, subsequent- Primary documented in this encounter [facility]* Diagnosis Urologic disorders- Primary Unspecified disorder of urethra and urinary tract Urge incontinence Benign prostatic hyperplasia with nocturia [facility] this [facility]* Diagnosis Essential hypertension, benign- Primary Essential hypertension, benign Arthritis, gouty Gouty arthropathy, unspecified BPH without urinary obstruction Chronic left-sided low back pain without sciatica Dyslipidemia Other and unspecified hyperlipidemia Prediabetes Other abnormal glucose Obesity (BMI 30-39.9) Encounter for long-term current use of medication Essential hypertension, benign- Primary Essential hypertension, benign Arthritis, gouty Gouty arthropathy, unspecified Dermatitis Contact dermatitis and other eczema, due to unspecified cause BPH without urinary obstruction Medicare annual wellness visit, subsequent- Primary Essential hypertension, benign- Primary Essential hypertension, benign Arthritis, gouty Gouty arthropathy, unspecified BPH without urinary obstruction documented in this encounter [facility]Evaluation note* Diagnosis Essential hypertension, benign- Primary Essential hypertension, benign Arthritis, gouty Gouty arthropathy, unspecified BPH without urinary obstruction Chronic left-sided low back pain without sciatica Dyslipidemia Other and unspecified hyperlipidemia Prediabetes Other abnormal glucose Obesity (BMI 30-39.9) Encounter for long-term current use of medication Essential hypertension, benign- Primary Essential hypertension, benign Arthritis, gouty Gouty arthropathy, unspecified Dermatitis Contact dermatitis and other eczema, due to unspecified cause BPH without urinary obstruction Medicare annual wellness visit, subsequent- Primary Essential hypertension, benign- Primary Essential hypertension, benign Arthritis, gouty Gouty arthropathy, unspecified BPH without urinary obstruction Neck pain- Primary Cervicalgia documented in this encounter [facility] HealthcareEvaluation note* Diagnosis Erectile dysfunction due to diseases classified elsewhere- Primary Benign prostatic hyperplasia with nocturia Urge incontinence Urologic disorders Unspecified disorder of urethra and urinary tract documented [facility] this encounter [facility] Narrative - Reported* Type Description Date Medical History Gout Medical Historyhigh blood pressureMedical Historyhigh [place] Other InstructionsNot on filedocumented in this encounter [facility]Not on filedocumented in this encounter [facility]Not on filedocumented in this encounter [facility]Not on filedocumented in this encounter [facility]ructionsNot on filedocumented in this encounter [facility] Purpose Family History No Family History Records FoundNo Family History Records FoundNo Family History Records FoundNo Family History Records FoundNo Family History Records FoundNo Family History Records Found Advance Directives No Advanced Directives Records FoundNo Advanced Directives Records FoundNo Advanced Directives Records FoundNo Advanced Directives Records FoundNo Advanced Directives Records FoundNo Advanced Directives Records Found Additional Source Comments (unrecognized sect ion and content) No Status Records FoundNo Status Records FoundNo Status Records FoundNo Status Records FoundNo Status Records FoundNo Status Records Found INFORMATION SOURCE (unrecogn ized section and content) DATE CREATED AUTHOR 07/23/2021 [facility] DATE CREATED AUTHOR AUTHOR'S ORGANIZ ATION 09/05/2022 [facility] DATE CREATED AUTHOR AUTHOR'S ORGANIZ ATION 10/06/2024 [facility] DATE CREATED AUTHOR AUTHOR'S ORGANIZ ATION 06/04/2025 [facility] DATE CREATED AUTHOR AUTHOR'S ORGANIZ ATION 06/30/2025 [facility] DATE CREATED AUTHOR AUTHOR'S ORGANIZ ATION 07/19/2025 [facility] REASON FOR VISIT (unrecogniz ed section and content) ReasonCommentsFollow-up6 mReasonCommentsMedicare Annual Wellness Visit SubsequentwellnessReasonCommentsFollow-upAnnual with psaReasonCommentsMed Refill ReasonCommentsFollow-[id number] PainReasonCommentsFollow-up Care Teams (unrecognized sec tion and content) Team MemberRelationshipSpecialtyStart DateEnd Date Caleb Blanchard MD [address] [place] [address] PCP - GeneralFamily Medicine11/07/23Team MemberRelationshipSpecialtyStart DateEnd Date Naderer, Caleb, MD [address] [place] [address] PCP - GeneralFamily Medicine11/07/23Team MemberRelationshipSpecialtyStart DateEnd Date Caleb Blanchard MD [address] [place] [address] PCP - GeneralFamily Medicine11/07/23Team MemberRelationshipSpecialtyStart DateEnd Date Caleb Blanchard MD [address] [place] [address] PCP - GeneralFamily Medicine11/07/23Team MemberRelationshipSpecialtyStart DateEnd Date Caleb Blanchard MD [address] [facility] [place] [address] PCP - GeneralFamily Medicine03/27/18Team MemberRelationshipSpecialtyStart DateEnd Date Caleb Blanchard MD [address] [facility] [address] PCP - GeneralFamily Medicine03/27/18Team MemberRelationshipSpecialtyStart DateEnd Date Caleb Blanchard MD PCP - GeneralFamily Medicine03/27/18Team MemberRelationshipSpecialtyStart DateEnd Date Caleb Blanchard MD PCP - GeneralFamily Medicine03/27/18Team MemberRelationshipSpecialtyStart DateEnd Date Caleb Blanchard MD [address] [place] [phone] PCP - [facility] Medicine11/07/23 Caleb Blanchard MD [address] [place] [address] PCP - [facility] [place]11/23/24Team MemberRelationshipSpecialtyStart DateEnd Date Caleb Blanchard MD [address] [place] [address] PCP - [facility]11/07/23 Caleb Blanchard MD [address] [place] [address] PCP - Critical access hospital11/23/24Team MemberRelationshipSpecialtyStart DateEnd Date Caleb Blanchard MD [address] [place] [phone] PCP - [facility] Medicine11/07/23 Caleb Blanchard MD [address] [place] [address] [facility]CP - [facility]11/23/24Team MemberRelationshipSpecialtyStart DateEnd Date Caleb Blanchard MD [address] [place] [address] PCP - [facility] Medicine11/07/23 Caleb Blanchard MD [address] [place] [address] [facility]11/23/24Team MemberRelationshipSpecialtyStart DateEnd Date Caleb Blanchard MD PCP - [facility]03/27/18Team MemberRelationshipSpecialtyStart DateEnd Date Caleb Blanchard MD [address] [place] [address] PCP - [facility]06/28/25Team MemberRelationshipSpecialtyStart DateEnd Date Caleb Blanchard MD [facility] - [facility]11/07/23 Caleb Blanchard MD [address] [place] [address] [facility]11/23/24 FOR RECORDS PERTAINING TO PATIENTS WHO ARE OR HAVE BEEN ENROLLED IN A CHEMICAL DEPENDENCY/SUBSTANCEABUSE PROGRAM, SOME INFORMATION MAY BE OMITTED. This clinical summary was aggregated from multiple sources. Caution should be exercised in using it in the provision of clinical care. This summary normalizes information from multiple sources, and as a consequence, information in this document may materially change the coding, format and clinical context of patient data. In addition, data may be omitted in some cases. CLINICAL DECISIONS SHOULD BE BASED ON THE PRIMARY CLINICAL RECORDS. [facility] [employer] [facility]. provides no warranty or guarantee of the accuracy or completeness of information in this document.
--- OUTSIDE RECORDS SUMMARY | 2025-10-15 09:20 | XMS_ITS | Clinical Summary ---
Author Organization [facility] Healthcare Address [address] [place] [address] Care Team Providers Care Ski Guide Name Role Phone Caleb Villeda MD Primary Care Provider [phone] Caleb Villeda MD Unavailable Allergies No known active allergies Medications MedicationSigDispense QuantityRefillsLast FilledStart DateEnd DateStatus amLODIPine (Norvasc) 5 MG tablet Take 1 tablet by mouth in the morning.07/25/2023ctive atorvastatin (Lipitor) 40 MG tablet Take 1 tablet by mouth at dzcvbph5207/25/2023ctive carvedilol (Coreg) 6.25 MG tablet Take 1 [...] by mouth Daily Pulm hypertension 90 tablet 304/907884/6Active allopurinol (Zyloprim) 100 MG tablet Indications:Gout, unspecified,Gouty [...] x-ray and PT. Medicare annual wellness visit, yatjuegvtt78/05/2024 Assessment & Plan (09/20/2024 11:41 AM EST): Reviewed labs. Discussed proper diet and regular aerobic exercise. Need aerobic exercise 5-6 days aweek for 30 minutes at a time. Smaller portions and limit total calories. Tetanus every 10 years. Advised not to smoke. Idhcjdzdxi43/14/2024 Assessment & Plan (05/30/2024 9:11 AM EDT): Rash appears to be contact dermatitis. Use steroid cream. Essential hypertension, kufyeo8011/30/2023 Assessment & Plan (04/16/2025 9:54 AM EDT): BP controlled and monitor PRN. Assessment & Plan (05/30/2024 9:11 AM EDT): BP controlled and monitor PRN. Assessment & Plan (11/30/2023 9:17 AM EST): BP controlled and monitor PRN. BPH without urinary kbbaeajmulu65/14/2024 Assessment & Plan (04/16/2025 9:54 AM EDT): Symptoms stable and continue flomax. Follow up with urology. Assessment & Plan (05/30/2024 9:10 AM EDT): Symptoms stable and continue flomax. Follow up with urology. Assessment & Plan (11/30/2023 9:16 AM EST): Symptoms stable and continue flomax. Follow up with urology. CAD, multiple jptaqk9711/30/20234636Zjtviirjxylz49/14/2024Erectile dysfunction of nonorganic vetfps5311/30/2023rthritis, gouty11/30/2023 Assessment & Plan (04/16/2025 9:54 AM EDT): No flares and continue allopurinol. Assessment & Plan (05/30/2024 9:10 AM EDT): No flares and continue allopurinol. Assessment & Plan (11/30/2023 9:16 AM EST): No flares and continue allopurinol. Vvlxvictosa02/14/2024Urge twnzyhwlflcl05/14/2024Encounter for long-term current use of nyfqygvsea67/14/2024Obesity (BMI 30-39.9)11/30/2023hronic left-sided low back pain without dicsypfm09/14/2024 Assessment & Plan (11/30/2023 9:17 AM EST): [...] other written material from your doctor or pharmacy?Vgvgeh4604/11/2025Humiliation, Afraid, Rape, and Kick questionnaireAnswerDate RecordedWithin the [...] times a week04/11/2025How often do you attend scientologist or baptism services?More than 4 times per year 04/11/2025Do you belong to any clubs or organizations such as scientologist groups, unions, fraSigniant or athletic groups, or school groups?Yes04/11/2025How often do you attend meetings of the clubs or organizations you belong to?More than 4 times per year04/11/2025re you , , , , never , or living with a partner?Ooktgmv4804/11/2025UDIT-CAnswerDate RecordedQ1: How often do you have a [...] heating?Not hard at all04/11/2025PHQ-2AnswerDate RecordedPatient Health Questionnaire-2 Pjykp00611/21/2023[facility] [place] of Occupational Health - Occupational Stress QuestionnaireAnswerDate RecordedDo you feel stress - tense, restless, nervous, or anxious, or unable to sleep at night because yourmind is troubled all the time - these days?To some wpxxbm2004/11/2025 Exercise Vital SignAnswerDate RecordedOn average, how many [...] steady place to sleep or slept in allisonelter (including now)?No11/23/2023Housing Stability Vital SignAnswerDate RecordedIn the last 12 months, was there a time when you were not able to pay the mortgage or rent on time?No04/11/2025Number of Times Moved in the Last Year Not on file04/11/2025t any time in the past 12 months, were you homeless or living in a correction (including now)?No04/11/2025Sex and Gender InformationValue Date RecordedSex Assigned at BirthNot on fileLegal NqgHyiz9106/01/2023 11:21 AM EDTGender IdentityNot on fileSexual OrientationNot on file Last Filed Vital Signs Vital SignReadingTime TakenCommentsBlood Bzeacfcb837/6008 1:11 PM EDT Dghmk7532 1:11 PM YUIGkzspinnrzd29.4 ??C (97.5 ??F)06/03/2025 1:11 PM EDTRespiratory Oans169606/03/2025 1:11 PM EDTOxygen Cevzculcqw79%06/03/2025 1:11 PM EDTInhaled Oxygen Concentration--Aynoyr830 kg (224 lb)06/03/2025 1:11 PM EDT Cwulmr609.3 cm (5' 9 )06/03/2025 1:11 PM EDTBody Mass Index33.0806/03/2025 1:11 PM EDT Plan of Treatment Health MaintenanceDue DateLast DoneCommentsMedicare Annual Wellness (AWV) 1945Influenza Vaccine (#1)509/06/2024, 06/01/2023, 07/10/2022, Additional history existsPneumococcal Vaccine: 65+ PuuvhHhvwyyukb02/19/2018, 07/17/2016, 10/24/2015 Insurance Care Teams Team MemberRelationshipSpecialtyStart DateEnd Date Caleb Villeda MD PCP - GeneralFamily Medicine11/07/23 Caleb Villeda MD [address] [place] [address] PCP - [facility]11/23/24
--- OUTSIDE RECORDS SUMMARY | 2025-10-15 09:20 | XMS_ITS | Clinical Summary ---
Author Organization [facility] Address [address] [place] [address] Care Team Providers Care Home Teaching Gr[employer] 7 And 8 Teacher Name Role Phone Caleb Villeda MD Primary Care Provider [phone] Allergies No known active allergies Medications MedicationSigDispense [...] type, unspecified whether angina present, unspecified whether [place] or transplanted heartTake 1 tablet (40 mg) by mouth at bedtime. 90 tablet 311/5Active cyclobenzap-irritant cntr irr2 10 mg kit Take 10 mg by mouth if needed in the morning, at noon, and at bedtime.06/03/2025 Active Active Problems ProblemNoted DateDiagnosed DateNeck pain06/03/2025Medicare annual wellness visit, xpsyfbjdac76/05/0537Lpvoygdiom43/14/2024rthritis, gouty11/30/2023AD, multiple yrpkhw7511/30/2023hronic left-sided low back pain without sciatica 11/30/20233973Cvhbswudleox19/14/2024Encounter for long-term current use of muhbmreesr52/14/1551Cfguzmnwdgd74/14/2024Essential eurulyrwurae50/09/2023 07/25/2023Ex-jjmvft24outHyperlipidemia Microscopic ifrugzuxc40Obesity07/25/2023 07/25/2023ositive PPDErectile dysfunction due to diseases classified kjxsxdoxw01/09/2022enign prostatic hyperplasia with lower urinary tract djjohmed67/17/2022Urge qxientqxeukr06/17/2022Urologic uujuzmwsl38/17/2022 Overview (08/30/2022): 1. benign prostatic hyperplasia with obstruction cystoscopy 04/23/2022 with progressively worseningurinary fwivhvnkj-94-04 times, nocturia times 2-3, and decreased urinary [...] prostate cancer screening 06/25/2022. Cardiovascular stress test ffwnobbc51/18/2021 Encounters DateTypeDepartmentCare FzwvLlflmorpmqt05/22/2025Orders [facility]ovascular [address] [place] [place] [address] Provider, MD JAIME Paige (dyspnea on exertion); Coronary artery disease, unspecified vessel or lesion type, unspecified whether angina present, unspecified whether [place] or transplanted heart09/26/2025 10:45 AM ESTOffice Visit [facility] [address] [place] [address] Mulu Powers MD DOE (dyspnea on exertion) (Primary Dx); Coronary artery disease, unspecified vessel or lesion type, unspecified whether angina present, unspecified whether [place] or transplanted heart09/05/2025Refill [facility] [address] [place] [address] Chely Aldana MA Coronary artery disease, unspecified vessel or lesion type, unspecified whether angina present, unspecified whether [place] or transplanted heart08/12/2025Orders [facility] [address] [place] [facility] [place] [address] Chely Aldana MA Benign hypertensive heart disease [...] and Gender InformationValueDate Recorded Sex Assigned at UdkbrVpmf50/11/2025 10:45 AM ESTLegal QfqIdqw0804/15/2022 12:39 AM EDTGender IdentityChoose not to abmmzboc10/11/2025 10:45 AM ESTSexual OrientationChoose not to /11/2025 10:45 AM EST Last Filed Vital Signs Vital SignReadingTime TakenCommentsBlood Ashdoeou202/7009/26/2025 11:00 AM EST Bewel825409/26/2025 11:00 AM ESTTemperature--Respiratory Rate--Oxygen Saturation 98%09/26/2025 11:00 AM ESTInhaled Oxygen Concentration--Tfoyru289 kg (224 lb) 09/26/2025 11:00 AM LQSGkrjon831.3 cm (5' 9 )09/26/2025 11:00 AM ESTBody Mass Index33.0809/26/2025 11:00 AM EST Plan of Treatment Health MaintenanceDue DateLast DoneCommentsDiabetes: Hemoglobin A1C1945 Medicare Annual Wellness (AWV)1945Depression Lwddiiike66/05/1959Fall Risk Bzeefejwd95/05/2012COVID-19 Vaccine ( season)5006/25/2025, 01/25/2025, 06/25/2024, Additional history existsAdult Ebnhbvm8202/22/2029 02/22/2019, 03/07/2012Pneumococcal Vaccine: 50+ AtcdsXnnlmllcx38/19/2018, 10/24/2015Zoster CyjotryiCfjzuccje63/09/2019, 02/22/2019, 05/21/2013Influenza CbvslvgXekmpbjpf99/09/2025, 06/25/2024, 06/01/2023, Additional history existsHIB VaccinesAged OutNo [...] on patient's age to complete this topic Procedures Procedure NamePriorityDate/TimeAssociated DiagnosisCommentsCOMPLETE TRANSTHORACIC ECHO (TTE) W/WO IMAGING AGENT, STRAIN, 3D, BUBBLE STUDYRoutine 10/07/2025 10:55 AM EST SANDOVAL (dyspnea on exertion) Coronary artery disease, unspecified vessel or lesion type, unspecified whether angina present, unspecified whether [place] or transplanted heart from Last 3 Months Results * Transthoracic echo (TTE) complete (10/07/2025 10:55 AM EST)Anatomical Region LateralityModalityUltrasound Narrative Authorizing ProviderResult TypeResult StatusEhab [facility]taP[facility] ECHO PROCEDURES Final Result from Last 3 Months Insurance MemberSubscriberPlan / Payer (Effective 2011-Present)Name:Prateek Llanes Member ID:[id number] Relation to Subscriber:SelfName:Prateek Llanes Subscriber ID:[id number] Payer ID:[id number] Group ID:Not on file Type:Medicare Address: [facility] [place] [id number] Care Teams Team MemberRelationshipSpecialtyStart DateEnd Date Caleb Villeda MD [address] [place] [address] PCP - Tebbxup90/10/22
--- OUTSIDE RECORDS SUMMARY | 2025-10-15 09:20 | XMS_ITS | Encounter Summary ---
Author Organization [facility] Address [address] [place] [address] Care Team Providers Care Accounting Officer Name Role Phone Caleb Villeda MD Primary Care Provider [phone] Encounter Details DateTypeDepartmentCare Team (Latest Contact Info)Wcdzlfyfamv96/22/2025[facility] Cardiovascular [address] [place] [address] ProviderGrecia MD [address] [place] [address] SANDOVAL (dyspnea on exertion); Coronary artery disease, unspecified vessel or lesion type, unspecified whether angina present, unspecified whether [place] or transplanted heart Social History Tobacco UseTypesPacks/DayYears UsedDateSmoking Tobacco: FormerCigarettesAlcohol UseStandard Drinks/WeekCommentsYes0 (1 standard drink = 0.6 oz pure alcohol) moderateUT Safety & EnvironmentAnswerDate RecordedFear of Current or Ex-Partner Not on file12/08/2023Emotionally AbusedNot on file12/08/2023hysically AbusedNot on file12/08/2023Sexually AbusedNot on file12/08/2023hysically or Sexually AbusedNot on file12/08/2023Sex and Gender InformationValueDate RecordedSex Assigned at SnvqhVatw27/11/2025 10:45 AM ESTLegal FdiNikt4304/15/2022 12:39 AM EDT Gender IdentityChoose not to jtfmurxe95/11/2025 10:45 AM ESTSexual Orientation Choose not to iieoavon16/11/2025 10:45 AM ESTdocumented as of this encounter Plan of Treatment Not on file documented as of this encounter Procedures Procedure NamePriorityDate/TimeAssociated DiagnosisCommentsCOMPLETE TRANSTHORACIC ECHO (TTE) W/WO IMAGING AGENT, STRAIN, 3D, BUBBLE STUDYRoutine 10/07/2025 10:55 AM EST SANDOVAL (dyspnea on exertion) Coronary artery disease, unspecified vessel or lesion type, unspecified whether angina present, unspecified whether [place] or transplanted heart documented in this encounter Results * Transthoracic echo (TTE) complete (10/07/2025 10:55 AM EST)Anatomical Region LateralityModalityUltrasound Narrative Authorizing ProviderResult TypeResult StatusEhab [facility]taM[facility] Health System ECHO PROCEDURES Final Result documented in this encounter Visit Diagnoses Diagnosis SANDOVAL (dyspnea on exertion) Other dyspnea and respiratory abnormality Coronary artery disease, unspecified vessel or lesion type, unspecified whether angina present, unspecified whether [place] or transplanted heart documented in this encounter Care Teams Team MemberRelationshipSpecialtyStart DateEnd Date Caleb Villeda MD [address] [place] [place] [address] PCP - Sfznfzs93/10/22documented as of this encounter
--- NOTE | 2025-10-15 09:30 | NM_ITS ---
Patient Name: ILIANA FLORES MR#: [id number] : 1945 Exam Date: 10/15/2025 Ordering Doctor: DR MILLER GARCIA M.D. RADIOLOGY REPORT PROCEDURE: NM ZAYRA PERF SPECT REST STR COMPARISON: None. INDICATIONS: DYSPNEA ON EXERTION, CAD TECHNIQUE: Exam Description: Stress/Rest one day protocol gated SPECT Rest Imagin.7 mCi Tc-99m Cardiolite IV on 10/15/2025 Stress Imaging 31.9 mCi Tc-99m Cardiolite IV on 10/15/2025 Exercise Protocol: 0.4 mg Lexiscan given IV Heart Rate (bpm): Rest: 58 Max: 94 PMHR: 66 Blood Pressure: Rest: 163/78 Max: 172/81 Symptoms: Rest and peak stress ECG findings were pending and the EKG portion of the study was pending per attending physician [facility] . For more details please see separate cardiac stress test report. FINDINGS: QUALITY OF STUDY: Good PERFUSION DEFECT: None LOCATION: SIZE: SEVERITY: TYPE: WALL MOTION: Normal LV SIZE: 110 mL. TID / TCD: 0.9 LVEF: Calculated EF 74%. SUMMARY: Normal myocardial perfusion imaging study CONCLUSION: Normal nuclear myocardial perfusion stress images without evidence of ischemia or infarction Normal left ventricular systolic function, EF 74% No transient ischemic dilatation, TID 0.9 EKG portion of stress test is reported separately Dictated by: Thao Villa MD on 10/18/2025 at 14:18 Approved by: Thao Villa MD on 10/18/2025 at 14:22
--- NOTE | 2025-10-15 11:21 | PC.NURSE ---
Patient tolerated Lexiscan stress test without problems. After Lexiscan injected, developed right neck fullness that subsided before end of recovery period. Patient symptom free when leaving stress room. Ambulated to cafeteria withour problems.
[2025-10-15] MEDS: REGADENOSON 0.4 MG/5 ML SYRINGE IV (11:24)
--- NOTE | 2025-10-16 16:17 | PM.STRESS ---
Stress Test Stress Test Requesting physician: Mulu Powers Procedure: This was a Lexiscan stress test with myocardial perfusion imaging performed at the [facility] on 10/15/2025. Intravenous line was secured. The patient was attached to electrocardiographic monitoring. Baseline vital signs and ECG were obtained. Lexiscan 0.4 mg was administered intravenously followed by administration of Cardiolite. The patient then went on to obtain myocardial perfusion imaging. Resting heart rate was 58 bpm and peak heart rate was 94 bpm. Resting blood pressure was 163/78 and peak blood pressure was 172/81. General Information: Reason for Stress Test: Dyspnea on exertion, coronary artery disease. Cardiac History and Risk Factors: Hypertension, hyperlipidemia. Resting 12 - Lead Electrocardiogram: Sinus bradycardia. Stress Test: Protocol: Pharmacologic stress with Lexiscan. Exercise Capacity: Not assessed. Blood Pressure Response: Resting hypertension. Rhythm: Sinus with occasional PVCs. ST - Response: No ischemic ST changes seen. Patient Response: No significant symptoms. Interpretation: 1. No evidence of ischemic ECG changes seen following infusion of Lexiscan. 2. Myocardial perfusion images will be reported separately.
== END 2025-10-15 09:17 | disposition home or self-care (01) ==
LOC: NM 09:16
PROVIDERS: PCP Family Medicine; Visit Provider Internal Medicine Interventional Cardiology
DX: R06.09 Other forms of dyspnea (principal); I25.10 Atherosclerotic heart disease of native coronary artery without angina pectoris
CPT/HCPCS: 78452; 93017; A9500; J2785